=== PATIENT | male | born 1940 | race Caucasian/White ===

== ENCOUNTER 2017-12-27 21:23 | Emergency (ER) | payer MEDICARE, OTHER ==
[2017-12-27] MEDS ORDERED: LIDOCAINE 1% INJ-PF (10 MG/ML) 30 ML SDV INJ ONE (22:48)
[2017-12-27] MEDS ORDERED: DIPH/PERTUSS(ACELL)/TETANUS VAC/PF 0.5 ML SYR (>=10YO) IM ONE ×2 (22:49→22:59)
[2017-12-27] MEDS ORDERED: LIDOCAINE 1% INJ-PF (10 MG/ML) 30 ML SDV ONE (22:59)
[2017-12-28] MEDS ORDERED: CEPHALEXIN 500 MG CAPSULE PO ONE (00:07)
--- NOTE | 2017-12-28 00:13 | ER Document Report ---
ED Extremity Problem, Lower - General Chief Complaint: Toe Injury Stated Complaint: TOE LACERATION Time Seen by Provider: 12/27/17 22:38 Mode of Arrival: Wheelchair Information source: Patient Notes: 77-year-old male presented to ED for laceration to the right foot between the fourth and fifth toe when he stubbed his toe on the cedar chest. He states his last tetanus shot was last year. He had a large laceration between the fourth and fifth toe. Patient is alert and oriented respirations regular unlabored speaking in full sentences. TRAVEL OUTSIDE OF THE [place] IN LAST 30 DAYS: No - HPI Patient complains to provider of: Injury, Pain - Related Data Allergies/Adverse Reactions: No Known Allergies Allergy (Verified 04/19/15 09:41) Past Medical History - Social History Smoking Status: Never Smoker Chew tobacco use (# tins/day): No Frequency of alcohol use: None Drug Abuse: None Family History: Reviewed & Not Pertinent Patient has suicidal ideation: No Patient has homicidal ideation: No - Past Medical History Cardiac Medical History: Reports: Hx Atrial Fibrillation Denies: Hx Heart Attack, Hx Hypertension Pulmonary Medical History: Reports: Hx Sleep Apnea Denies: Hx Asthma Neurological Medical History: Denies: Hx Cerebrovascular Accident, Hx Seizures Renal/ Medical History: Denies: Hx Peritoneal Dialysis GI Medical History: Denies: Hx Hepatitis, Hx Hiatal Hernia, Hx Ulcer Psychiatric Medical History: Reports: Hx Depression Infectious Medical History: Denies: Hx Hepatitis Past Surgical History: Denies: Hx Open Heart Surgery, Hx Pacemaker - Immunizations Hx Diphtheria, Pertussis, Tetanus Vaccination: Yes Hx Pneumococcal Vaccination: 03/24/14 Physical Exam - Vital signs Vitals: Temp Pulse Resp BP Pulse Ox 99.1 F 74 20 133/78 H 95 12/27/17 21:41 12/27/17 21:41 12/27/17 21:41 12/27/17 21:41 12/27/17 21:41 Course - Re-evaluation Re-evalutation: 12/28/17 02:30 Patient was discharged home with a prescription for Keflex. She was instructed to follow-up with podiatry on Saturday due to his fact that he is a diabetic and on Coumadin. Patient verbalized understanding of instructions. If was given instructions on wound care and dressing changes. Patient was treated with Keflex while in the emergency room. 12/28/17 02:31 - Vital Signs Vital signs: Temp Pulse Resp BP Pulse Ox 98.6 F 76 18 116/86 H 95 12/28/17 00:32 12/28/17 00:32 12/28/17 00:32 12/28/17 00:32 12/28/17 00:32 Procedures - Laceration/Wound Repair Right Foot Time completed: 23:55 Wound length (cm): 4 Wound's Depth, Shape: Irregular Laceration pre-procedure: Sterile PPE donned, Sterile drapes applied, Shur- Clens applied Anesthetic type: 1% Lidocaine Volume Anesthetic (mLs): 8 Wound explored: Contaminated Irrigated w/ Saline (mLs): 300 Wound Repaired With: Sutures Suture Size/Type: 4:0, Ethilon Number of Sutures: 9 Layer Closure?: No Post-procedure wound care: Sterile dressing applied Post-procedure NV exam normal: Yes Complications: No Discharge - Discharge Clinical Impression: laceration right between toes Condition: Stable Disposition: HOME, SELF-CARE Additional Instructions: Foot Laceration A laceration on the foot will heal best if it remains undisturbed. Pressure on the stitch area from shoes or walking can prevent proper healing. Crutches are necessary if walking causes discomfort. Do not wear shoes that put pressure on the cut. If your feet tend to sweat, you must change the bandage frequently, allowing the area to dry before placing the new bandage. Keep the wound and dressing clean. Do not shower or bathe the area. If the dressing gets wet, remove it and blot the wound dry, then reapply a clean, dry dressing. Dressings should be changed every day, or even two or three times daily if your feet sweat. If any signs of infection occur (swelling, redness, increasing tenderness, red streaks, tender lumps in the groin above the laceration, or fever), see the doctor immediately. SOAP CLEANSING: Gently wash the wound daily using a mild soap (like Ivory, Phisoderm, Neutrogena). Use warm water, rubbing gently until all debris, ooze, and crusting have been washed from the wound. Allow to dry briefly (about 10 minutes) after cleaning. Repeat this cleansing at least three times a day for the first two days and then once or twice a day. ANTIBIOTIC OINTMENT PROTECTION: Your wounds are such that dressing them is not practical or optional. After cleansing, you should apply a thin coating of antibiotic ointment ( Bacitracin, not Neosporin) to the wounds at least three times daily. This lessens infection risk, and may decrease the amount of scarring. Use a q-tip or dull butter knife, not your finger, to apply this ointment. Any debris or ooze which builds up in the ointment should be gently rubbed off with a sterile gauze pad. Harder crusting may need to be gently scrubbed off with a clean wash cloth with soap and warm water, perhaps applying a warm, wet wash cloth to the wound for ten minutes first. Development of redness, severe itching, or blistering may mean allergy to the ointment. See the doctor. PROPHYLACTIC ANTIBIOTIC: The antibiotics which have been prescribed are designed to decrease the risk of infection. Only certain types of wounds benefit from this -- the typical cut, scrape, or burn DOES NOT require antibiotics. Of course, infection can still occur despite the use of prophylactic antibiotics. Your wound will heal with less chance of an infectious complication if you take the medication as directed. The most important dose is the FIRST dose, so don't delay filling the prescription! Cephalexin The antibiotic you've been prescribed is a member of the cephalosporin class. This type of antibiotic covers a wide variety of infections, including those of the skin, lungs, and urinary tract. It's useful for staph infections. This antibiotic is slightly similar to the penicillin family. In rare cases , a person who is allergic to penicillin will also be allergic to this medication. If you have had a severe allergic reaction to penicillin, and have not taken this antibiotic since that time, notify your doctor. Antibiotics which cover many germs ("broad spectrum" antibiotics) are more likely to cause diarrhea or "yeast" infections. Women prone to vaginal yeast problems may suffer an attack after taking this antibiotic. In infants, oral thrush (white spots "stuck" on the cheek) or yeast diaper rash may result. See your doctor if these problems occur. Call at once if you develop itching, hives , shortness of breath, or lightheadedness. FOLLOW-UP CARE: Please return in ____3_ days for an infection check and dressing change. Your sutures should be removed in ___10__ days. To facilitate a timely removal of your sutures, you may return to the Emergency Department at [facility]. You do not need to call for an appointment, but the best time to come in for suture removal is early in the morning. If you have been referred to another physician for follow-up care, call that physicians office for an appointment as you were instructed. If you experience a significant change in your laceration, or if you are concerned there may be an infection (swelling, redness, drainage, increasing tenderness, red streaks, tender lumps in the armpit or groin above the laceration, or fever) , return to the Emergency Department immediately re-evaluation. Prescriptions: Cephalexin Monohydrate [Keflex 500 mg Capsule] 500 mg PO Q6H 5 Days capsule Forms: Elevated Blood Pressure Referrals: COLTEN BARBA MD [Primary Care Provider] - Follow up as needed PARKER ZIMMERMAN DPM [ACTIVE STAFF] - 12/30/17
[2017-12-28 00:35] VITALS: BP 116/86
== END 2017-12-28 00:43 | disposition home or self-care (01) ==
LOC: ER 21:23
DX: S91.311A Laceration without foreign body, right foot, initial encounter (principal); W22.8XXA Striking against or struck by other objects, initial encounter
CPT/HCPCS: 99282; 12002; A9270; J3490

== ENCOUNTER 2018-05-17 12:04 | Emergency (ER) | payer MEDICARE, OTHER ==
--- NOTE | 2018-05-17 13:49 | ER Document Report ---
ED Medical Screen (RME) - General Chief Complaint: Leg Pain Stated Complaint: RIGHT LEG INJURY Time Seen by Provider: 05/17/18 13:44 Notes: Patient kicked a container Saturday and it caused an abrasion to the lower right lateral leg and the external layer of skin was peeled away. They have been putting peroxide on the lesion and applying triple antibiotic ointment, but it is having increasing pain, swelling, and its bleeding. Patient has chronic dermatitis of both lower extremities. He is also on Coumadin. Has not had a fever. Bes-[id number] diabetic. TRAVEL OUTSIDE OF THE [place] IN LAST 30 DAYS: No - Related Data Allergies/Adverse Reactions: No Known Allergies Allergy (Verified 05/17/18 13:39) Past Medical History - Social History Chew tobacco use (# tins/day): No Frequency of alcohol use: None Drug Abuse: None - Past Medical History Cardiac Medical History: Reports: Hx Atrial Fibrillation Denies: Hx Heart Attack, Hx Hypertension Pulmonary Medical History: Reports: Hx Sleep Apnea Denies: Hx Asthma Neurological Medical History: Denies: Hx Cerebrovascular Accident, Hx Seizures Renal/ Medical History: Denies: Hx Peritoneal Dialysis GI Medical History: Denies: Hx Hepatitis, Hx Hiatal Hernia, Hx Ulcer Psychiatric Medical History: Reports: Hx Depression Infectious Medical History: Denies: Hx Hepatitis Past Surgical History: Denies: Hx Open Heart Surgery, Hx Pacemaker - Immunizations Hx Diphtheria, Pertussis, Tetanus Vaccination: Yes Physical Exam - Vital signs Vitals: Temp Pulse Resp BP Pulse Ox 98.2 F 82 18 126/75 H 95 05/17/18 12:12 05/17/18 12:12 05/17/18 12:12 05/17/18 12:12 05/17/18 12:12 Course - Vital Signs Vital signs: Temp Pulse Resp BP Pulse Ox 98.2 F 82 18 126/75 H 95 05/17/18 12:12 05/17/18 12:12 05/17/18 12:12 05/17/18 12:12 05/17/18 12:12
[2018-05-17 14:17] LABS: ABSOLUTE EOSINOPHILS # (AUTO) 0.1 10^3/uL (0.0-0.6); ABSOLUTE LYMPHOCYTES (AUTO) 1.4 10^3/uL (0.5-4.7); ABSOLUTE MONOCYTES (AUTO) 0.9 10^3/uL (0.1-1.4); ABSOLUTE NEUT (AUTO) 5.4 10^3/uL (1.7-8.2); BASOPHILS % (AUTO) 0.5 % (0-2); EOSINOPHILS % (AUTO) 1.3 % (0-6); HEMATOCRIT 38.6 % (37.9-51.0); HEMOGLOBIN 13.1 g/dL (13.5-17.0); LYMPHOCYTES % (AUTO) 18.3 % (13-45); MEAN CORPUSCULAR VOLUME 88 fl (80-97); MONOCYTES % (AUTO) 11.9 % (3-13); PLATELET COUNT 124 10^3/uL (150-450); RED BLOOD COUNT 4.38 10^6/uL (4.35-5.55); RED CELL DISTRIBUTION WIDTH 17.5 % (11.5-14.0); TOTAL CELLS COUNTED % (AUTO) 100 %; WHITE BLOOD COUNT 7.9 10^3/uL (4.0-10.5)
[2018-05-17 14:22] LABS: INTERNATIONAL RATION (INR) 1.35; PROTHROMBIN TIME 17.4 SEC (11.4-15.4)
[2018-05-17 14:34] LABS: ALANINE AMINOTRANSFERASE 19 U/L (21-72); ALBUMIN 4.3 g/dL (3.5-5.0); ALKALINE PHOSPHATASE 134 U/L (38-126); ANION GAP 14 (5-19); ASPARTATE AMINO TRANSFERASE 25 U/L (17-59); BILIRUBIN,DIRECT 0.4 mg/dL (0.0-0.4); BILIRUBIN,TOTAL 1.3 mg/dL (0.2-1.3); BLOOD UREA NITROGEN 22 mg/dL (7-20); CALCIUM 9.6 mg/dL (8.4-10.2); CARBON DIOXIDE 27 mmol/L (22-30); CHLORIDE 102 mmol/L (98-107); GLUCOSE 125 mg/dL (75-110); POTASSIUM 4.5 mmol/L (3.6-5.0); TOTAL PROTEIN 7.6 g/dL (6.3-8.2)
--- NOTE | 2018-05-17 14:35 | ER Document Report ---
ED General - General Chief Complaint: Leg Pain Stated Complaint: RIGHT LEG INJURY Time Seen by Provider: 05/17/18 13:44 Notes: Patient is a 77-year-old male with diabetes and atrial fibrillation that presents to the emergency department for chief complaint of leg abrasion from injury. Patient reports that he accidentally had kicked a box that holds a chain saw on this past Saturday, and scraped the skin off, since then he has had increased swelling and redness to his right lower extremity, he has been applying hydrogen peroxide, and antibiotic ointment, but the wound is been weeping continuously so he decided to come have this evaluated. He does have a history of venous stasis in the bilateral lower extremities. He denies noting any fevers, chills, night sweats, nausea, vomiting or abdominal pain. He currently rates the pain in his leg as a 4 out of 10, worse with palpation around the area, describes as a constant aching sensation. Past Medical History: Diabetes mellitus, atrial fibrillation, venous stasis Past Surgical History: Appendectomy, cardiac ablation Social History: Former smoker, quit over 30 years ago, denies alcohol or drug use Family History: Reviewed and noncontributory for presenting illness Allergies: Reviewed, see documented allergy list. REVIEW OF SYSTEMS: Other than noted above, the 12 point review of systems was reviewed with the patient and were negative, all pertinent findings are included in the HPI. PHYSICAL EXAMINATION: Vital signs reviewed, nursing noted reviewed. GENERAL: Well-appearing, well-nourished and in no acute distress. HEAD: Atraumatic, normocephalic. EYES: Eyes appear normal, extraocular movements intact, sclera anicteric, conjunctiva are normal. ENT: nares patent, oropharynx clear without exudates. Moist mucous membranes. NECK: Normal range of motion, supple without lymphadenopathy LUNGS: Breath sounds clear to auscultation bilaterally and equal. No wheezes rales or rhonchi. HEART: Regular rate and rhythm without murmurs ABDOMEN: Soft, nontender, normoactive bowel sounds. No rebound, guarding, or rigidity. No masses appreciated. EXTREMITIES: Bilateral lower extremities, have hyperpigmentation, however the right lower extremity, has increased edema, and erythema, tenderness with palpation, on the anterior and posterior aspects of the calf, there is a 4 x 5 cm skin avulsion, without purulent drainage, currently clear drainage is present. There is surrounding erythema however. NEUROLOGICAL: No focal neurological deficits. Moves all extremities spontaneously Motor and sensory grossly intact on exam. PSYCH: Normal mood, normal affect. SKIN: Warm, Dry, normal turgor, no rashes or lesions noted on exposed skin TRAVEL OUTSIDE OF THE [place] IN LAST 30 DAYS: No - Related Data Allergies/Adverse Reactions: No Known Allergies Allergy (Verified 05/17/18 13:39) Past Medical History - Social History Smoking Status: Never Smoker Chew tobacco use (# tins/day): No Frequency of alcohol use: None Drug Abuse: None Family History: Reviewed & Not Pertinent Patient has suicidal ideation: No Patient has homicidal ideation: No - Past Medical History Cardiac Medical History: Reports: Hx Atrial Fibrillation Denies: Hx Heart Attack, Hx Hypertension Pulmonary Medical History: Reports: Hx Sleep Apnea Denies: Hx Asthma Neurological Medical History: Denies: Hx Cerebrovascular Accident, Hx Seizures Renal/ Medical History: Denies: Hx Peritoneal Dialysis GI Medical History: Denies: Hx Hepatitis, Hx Hiatal Hernia, Hx Ulcer Psychiatric Medical History: Reports: Hx Depression Infectious Medical History: Denies: Hx Hepatitis Past Surgical History: Denies: Hx Open Heart Surgery, Hx Pacemaker - Immunizations Hx Diphtheria, Pertussis, Tetanus Vaccination: Yes Hx Pneumococcal Vaccination: 03/24/14 Physical Exam - Vital signs Vitals: Temp Pulse Resp BP Pulse Ox 98.2 F 82 18 126/75 H 95 05/17/18 12:12 05/17/18 12:12 05/17/18 12:12 05/17/18 12:12 05/17/18 12:12 Course - Re-evaluation Re-evalutation: Patient seen and examined vital signs reviewed. Laboratory data and imaging were ordered as appropriate for the patient's presenting symptoms and complaint, with consideration of any critical or life threatening conditions that may be associated with their obtained history and exam as noted above. Patient was treated with IV Zosyn, and [place] for pain Results were reviewed when available and demonstrated negative duplex imaging of the lower extremity, he did not have any leukocytosis, and blood work is otherwise unchanged from prior The patient was re-evaluated and was stable Evaluation was most consistent with injury and cellulitis to the right lower extremity, duplex imaging negative for DVT, advised elevation, and compression of the leg, his wound was redressed, will discharge him home on doxycycline, his prior cultures were reviewed, no history of MRSA, or Pseudomonas, he is advised if he has any worsening symptoms, that he should return to the emergency department, should follow-up with primary care for wound check. Results were discussed with the patient at this point, after careful consideration I feel that that patient can be discharged from the emergency department, the patient was educated treatments and reasons to return to the emergency department based on their presumed diagnosis as noted above, they were advised to followup with a primary care physician in 2-3 days. Patient was agreeable to plan of care. *Note is created using voice recognition software and may contain spelling, syntax or grammatical errors. Laboratory 05/17/18 05/17/18 05/17/18 13:53 13:53 13:53 WBC 7.9 RBC 4.38 Hgb 13.1 L Hct 38.6 MCV 88 MCH 30.0 MCHC 34.0 RDW 17.5 H Plt Count 124 L Seg Neutrophils % 68.0 Lymphocytes % 18.3 Monocytes % 11.9 Eosinophils % 1.3 Basophils % 0.5 Absolute Neutrophils 5.4 Absolute Lymphocytes 1.4 Absolute Monocytes 0.9 Absolute Eosinophils 0.1 Absolute Basophils 0.0 PT 17.4 H INR 1.35 Sodium 143.0 Potassium 4.5 Chloride 102 Carbon Dioxide 27 Anion Gap 14 BUN 22 H Creatinine 0.95 Est GFR ( Amer) > 60 Est GFR (Non-Af Amer) > 60 Glucose 125 H Calcium 9.6 Total Bilirubin 1.3 Direct Bilirubin 0.4 Neonat Total Bilirubin Not Reportable Neonat Direct Bilirubin Not Reportable Neonat Indirect Bili Not Reportable AST 25 ALT 19 L Alkaline Phosphatase 134 H Total Protein 7.6 Albumin 4.3 Venous Doppler Study 05/17/18 14:48 IMPRESSION: NO EVIDENCE OF DVT OR SVT IN THE RIGHT LEG. - Vital Signs Vital signs: Temp Pulse Resp BP Pulse Ox 98.6 F 86 20 130/80 H 98 05/17/18 16:38 05/17/18 16:38 05/17/18 16:38 05/17/18 16:38 05/17/18 16:38 - Laboratory Result Diagrams: 05/17/18 13:53 05/17/18 13:53 Laboratory results interpreted by me: 05/17/18 05/17/18 05/17/18 13:53 13:53 13:53 Hgb 13.1 L RDW 17.5 H Plt Count 124 L PT 17.4 H BUN 22 H Glucose 125 H ALT 19 L Alkaline Phosphatase 134 H Discharge - Discharge Clinical Impression: Cellulitis Qualifiers: Site of cellulitis: extremity Site of cellulitis of extremity: lower extremity Laterality: right Qualified Code(s): L03.115 - Cellulitis of right lower limb Condition: Stable Disposition: HOME, SELF-CARE Instructions: Cellulitis ([facility]) Additional Instructions: Please keep your leg elevated as much as possible, apply dressings at least once daily, if your symptoms are not improving, do not hesitate to return to the emergency department, or if you develop fever, chills, nausea, vomiting or lightheadedness. Also you should follow-up with your primary care physician/ family physician in the next 2-3 days, to have a wound check. Prescriptions: Doxycycline Hyclate 100 mg PO BID #20 capsule Hydrocodone/Acetaminophen [[place] 5-325 mg Tablet] 1 tab PO Q6H PRN #12 tablet PRN Reason: LEG PAIN Referrals: COLTEN BARBA MD [Primary Care Provider] - Follow up in 3-5 days
[2018-05-17] MEDS ORDERED: HYDROCODONE/ACETAMINOPHEN 5-325 MG TABLET PO ONE (14:48)
[2018-05-17] MEDS ORDERED: PIPERACILLIN/TAZOBACTAM 3.375 GM VIAL IV ONE (14:48)
--- NOTE | 2018-05-17 16:21 | RADIOLOGY REPORT (SQ) ---
EXAM DESCRIPTION: VENOUS UNILATERAL LOWER COMPLETED DATE/TIME: 05/17/2018 4:07 pm REASON FOR STUDY: right le swelling, erythema COMPARISON: None. TECHNIQUE: Dynamic and static perry scale and color images acquired of the right leg venous system. S elected spectral images acquired with additional compression and augmentation maneuvers. The contrala teral common femoral vein and saphenofemoral junction were also imaged. Images stored on PACS. LIMITATIONS: None. FINDINGS: COMMON FEMORAL: Normal phasicity, compression and augmentation. No visualized echogenic ma terial on perry scale. No defects on color images. FEMORAL: Normal compression and augmentation. No visualized echogenic material on perry scale. No defe cts on color images. POPLITEAL: Normal compression, augmentation. No visualized echogenic material on perry scale. No defec ts on color images. CALF VESSELS: Normal compression, augmentation. No visualized echogenic material on perry scale. No de fects on color images. GSV and SSV: Normal compression, augmentation. No visualized echogenic material on perry scale. No def ects on color images. ANY DEEP VENOUS INSUFFICIENCY: Not evaluated. ANY EVIDENCE OF POPLITEAL CYST: No. OTHER: No other significant finding. CONTRALATERAL COMMON FEMORAL VEIN AND SAPHENOFEMORAL JUNCTION: Normal phasicity, compression and augmentation. No visualized echogenic material on perry scale. No de fects on color images. IMPRESSION: NO EVIDENCE OF DVT OR SVT IN THE RIGHT LEG. TECHNICAL DOCUMENTATION: JOB ID: [id number] [employer]- All Rights Reserved Reading location - IP/workstation name: [email or web address]
[2018-05-17 16:39] VITALS: BP 130/80
== END 2018-05-17 16:39 | disposition home or self-care (01) ==
LOC: ER 12:04
DX: S80.811A Abrasion, right lower leg, initial encounter (principal); L03.115 Cellulitis of right lower limb; W22.8XXA Striking against or struck by other objects, initial encounter; E11.9 Type 2 diabetes mellitus without complications; Z87.891 Personal history of nicotine dependence
CPT/HCPCS: 99284; 96365; 36415; 87040; 85025; 85610; 80053; 93971; J2543; A9270

== ENCOUNTER 2018-07-09 13:40 | Inpatient (IN) | payer MEDICARE, OTHER ==
[2018-07-09] MEDS ORDERED: ASPIRIN 81 MG TABLET, CHEWABLE PO ONE (14:26)
--- NOTE | 2018-07-09 14:28 | ER Document Report ---
ED Medical Screen (RME) - General Chief Complaint: Shortness Of Breath Stated Complaint: SHORTNESS OF BREATH Time Seen by Provider: 07/09/18 14:25 Notes: 77-year-old male. History of hypertension. Questionable CHF. Possible low heart rate at home. Has been having increased shortness of breath some mild chest discomfort with small amount of swelling to the lower extremities. At home heart rate monitor said his heart rate was in the 30s. Called his addictions counselor assistant. Child Support Officer advised patient to come to the ER. I have greeted and performed a rapid initial assessment of this patient. A comprehensive ED assessment and evaluation of the patient, analysis of test results and completion of the medical decision making process will be conducted by additional ED providers. TRAVEL OUTSIDE OF THE [place] IN LAST 30 DAYS: No - Related Data Allergies/Adverse Reactions: No Known Allergies Allergy (Verified 07/09/18 13:41) Past Medical History - Social History Frequency of alcohol use: None Drug Abuse: None - Past Medical History Cardiac Medical History: Reports: Hx Atrial Fibrillation, Hx Congestive Heart Failure, Hx Hypercholesterolemia, Hx Hypertension Denies: Hx Heart Attack Pulmonary Medical History: Reports: Hx COPD, Hx Pneumonia, Hx Sleep Apnea Denies: Hx Asthma Neurological Medical History: Denies: Hx Cerebrovascular Accident, Hx Seizures Endocrine Medical History: Reports: Hx Diabetes Mellitus Type 2 Renal/ Medical History: Denies: Hx Peritoneal Dialysis GI Medical History: Denies: Hx Hepatitis, Hx Hiatal Hernia, Hx Ulcer Psychiatric Medical History: Reports: Hx Depression Infectious Medical History: Denies: Hx Hepatitis Past Surgical History: Reports: Hx Appendectomy, Hx Tonsillectomy. Denies: Hx Open Heart Surgery, Hx Pacemaker - Immunizations Hx Diphtheria, Pertussis, Tetanus Vaccination: Yes Physical Exam - Vital signs Vitals: Temp Pulse Resp BP Pulse Ox 98.1 F 48 L 20 136/79 H 94 07/09/18 13:42 07/09/18 13:42 07/09/18 13:42 07/09/18 13:42 07/09/18 13:42 - Cardiovascular Rhythm: Irregularly irregular, Bradycardia Course - Vital Signs Vital signs: Temp Pulse Resp BP Pulse Ox 98.1 F 48 L 20 136/79 H 94 07/09/18 13:42 07/09/18 13:42 07/09/18 13:42 07/09/18 13:42 07/09/18 13:42
[2018-07-09] MEDS ORDERED: NORMAL SALINE 1000 ML 100 ML IV ONE (15:04)
--- NOTE | 2018-07-09 15:05 | ER Document Report ---
ED Respiratory Problem - General Mode of Arrival: Ambulatory Information source: Patient TRAVEL OUTSIDE OF THE [place] IN LAST 30 DAYS: No <JESUS CARRANZA - Last Filed: 07/09/18 16:20> <STEPHEN NEWSOME - Last Filed: 07/09/18 19:58> - General Chief Complaint: Shortness Of Breath Stated Complaint: SHORTNESS OF BREATH Time Seen by Provider: 07/09/18 14:25 Notes: 77-year-old male who presents to the emergency department today with complaints of shortness of breath with associated chest pain which began last night at around 0200. Patient states that he was trying to sleep when his symptoms began. Patient states his symptoms were somewhat relieved if he sat up in bed. Patient describes the location of his chest pain as "both sides" and points to the anterior lateral chest blanton bilaterally. Patient also mentions that he has had tingling across all five fingers on both hands. Patient states it does not hurt when he breathes. (JESUS CARRANZA) - Related Data Allergies/Adverse Reactions: No Known Allergies Allergy (Verified 07/09/18 13:41) Past Medical History - General Information source: Patient - Social History Smoking Status: Former Smoker Cigarette use (# per day): No Frequency of alcohol use: None Drug Abuse: None Lives with: Family Family History: Reviewed & Not Pertinent Patient has suicidal ideation: No Patient has homicidal ideation: No - Past Medical History Cardiac Medical History: Reports: Hx Atrial Fibrillation, Hx Congestive Heart Failure, Hx Hypercholesterolemia, Hx Hypertension Pulmonary Medical History: Reports: Hx COPD, Hx Pneumonia, Hx Sleep Apnea Endocrine Medical History: Reports: Hx Diabetes Mellitus Type 2 Psychiatric Medical History: Reports: Hx Depression Past Surgical History: Reports: Hx Appendectomy, Hx Tonsillectomy - Immunizations Hx Diphtheria, Pertussis, Tetanus Vaccination: Yes Hx Pneumococcal Vaccination: 03/24/14 <JESUS CARRANZA - Last Filed: 07/09/18 16:20> Review of Systems - Review of Systems Constitutional: No symptoms reported EENT: No symptoms reported Cardiovascular: See HPI, Chest pain Respiratory: See HPI, Short of breath. denies: Hurts to breathe Gastrointestinal: No symptoms reported Genitourinary: No symptoms reported Male Genitourinary: No symptoms reported Musculoskeletal: No symptoms reported Skin: No symptoms reported Hematologic/Lymphatic: No symptoms reported Neurological/Psychological: See HPI, Tingling - all fingers -: Yes All other systems reviewed and negative <JESUS CARRANZA - Last Filed: 07/09/18 16:20> Physical Exam <JESUS CARRANZA - Last Filed: 07/09/18 16:20> - Vital signs Vitals: Temp Pulse Resp BP Pulse Ox 98.1 F 48 L 20 136/79 H 94 07/09/18 13:42 07/09/18 13:42 07/09/18 13:42 07/09/18 13:42 07/09/18 13:42 - Notes Notes: Physical Exam: General: Alert, appears somewhat uncomfortable. HEENT: Normocephalic. Atraumatic. PERRL. Extraocular movements intact. Oropharynx clear. Dry mucous membranes, thick saliva. Neck: Supple. Non-tender. Respiratory: No respiratory distress. Clear and equal breath sounds bilaterally. Tenderness with palpation across the anterior lateral chest blanton bilaterally. Cardiovascular: Regular rate and rhythm. Abdominal: Normal Inspection. Non-tender. No distension. Normal Bowel Sounds. Back: Non-tender. No deformity or step off. Extremities: Moves all four extremities. Upper extremities: Normal inspection. Normal ROM. Lower extremities: 1-2+ chronic lower extremity edema. Normal ROM. Neurological: Normal cognition. AAOx4. Normal speech. Psychological: Normal affect. Normal Mood. Skin: Warm. Dry. Normal color. (JESUS CARRANZA) Course - Laboratory Result Diagrams: 07/09/18 14:53 07/09/18 14:53 <JESUS CARRANZA - Last Filed: 07/09/18 16:20> - Laboratory Result Diagrams: 07/09/18 14:53 07/09/18 14:53 - Diagnostic Test Radiology reviewed: Image reviewed, Reports reviewed - Chest x-ray shows enlarged heart without failure. <STEPHEN NEWSOME - Last Filed: 07/09/18 19:58> - Re-evaluation Re-evalutation: 07/09/18 17:54 The hospital does not have any Kayexalate. I was able to locate one pharmacy in town that does have some Kayexalate powder. They are going to mix up 2 doses of Kayexalate 15 g and the patient's family is going to go to that pharmacy and pear picker the medicine, then return to the emergency room with the 2 doses. When they return we will give him 1 dose and keep the other with him as a spare just in case. While discussing this with the , it turns out the patient takes potassium tablets and eats a banana every day. (STEPHEN NEWSOME) - Vital Signs Vital signs: Temp Pulse Resp BP Pulse Ox 98.1 F 48 L 24 H 155/82 H 92 07/09/18 13:42 07/09/18 13:42 07/09/18 18:01 07/09/18 17:02 07/09/18 18:01 - Laboratory Laboratory results interpreted by me: 07/09/18 07/09/18 07/09/18 14:53 14:53 14:53 RDW 18.2 H Plt Count 138 L PT 20.8 H APTT 42.6 H Potassium 5.9 H BUN 25 H Creatinine 1.43 H Est GFR ( Amer) 58 L Est GFR (Non-Af Amer) 48 L Glucose 281 H Total Bilirubin 1.7 H Direct Bilirubin 0.9 H Alkaline Phosphatase 169 H Creatine Kinase 35 L NT-Pro-B Natriuret Pep Urine Protein Urine Glucose (UA) 07/09/18 07/09/18 14:53 19:00 RDW Plt Count PT APTT Potassium BUN Creatinine Est GFR ( Amer) Est GFR (Non-Af Amer) Glucose Total Bilirubin Direct Bilirubin Alkaline Phosphatase Creatine Kinase NT-Pro-B Natriuret Pep 532 H Urine Protein 30 H Urine Glucose (UA) >=500 H Critical Care Note - Critical Care Note Total time excluding time spent on procedures (mins): 35 <STEPHEN NEWSOME - Last Filed: 07/09/18 19:58> Discharge <JESUS CARRANZA - Last Filed: 07/09/18 16:20> - Discharge Admitting Provider: Hospitalist Unit Admitted: IMCU <STEPHEN NEWSOME - Last Filed: 07/09/18 19:58> - Discharge Clinical Impression: Bradycardia, Chronic atrial fibrillation, Hyperkalemia, Dehydration, Chest wall pain, Inadequate anticoagulation Type 2 diabetes mellitus Qualifiers: Diabetes mellitus custodial insulin use: without terminal superintendent use Diabetes mellitus complication status: with unspecified complications Qualified Code(s): E11.8 - Type 2 diabetes mellitus with unspecified complications Condition: Stable Disposition: ADMITTED INPATIENT Scribe Attestation: 07/09/18 19:58 I personally performed the services described in the documentation, reviewed and edited the documentation which was dictated to the scribe in my presence, and it accurately records my words and actions. (STEPHEN NEWSOME) Scribe Documentation - Scribe Written by Dajae:: Violet Gordon, 07/09/2018 1620 acting as scribe for :: Aniya <JESUS CARRANZA - Last Filed: 07/09/18 16:20>
[2018-07-09 15:08] LABS: ABSOLUTE LYMPHOCYTES (AUTO) 1.5 10^3/uL (0.5-4.7); ABSOLUTE MONOCYTES (AUTO) 1.2 10^3/uL (0.1-1.4); ABSOLUTE NEUT (AUTO) 7.8 10^3/uL (1.7-8.2); BASOPHILS % (AUTO) 0.2 % (0-2); HEMATOCRIT 43.3 % (37.9-51.0); HEMOGLOBIN 14.2 g/dL (13.5-17.0); LYMPHOCYTES % (AUTO) 14.1 % (13-45); MEAN CORPUSCULAR HEMOGLOBIN 28.1 pg (27.0-33.4); MEAN CORPUSCULAR HGB CONC 32.7 g/dL (32.0-36.0); MEAN CORPUSCULAR VOLUME 86 fl (80-97); MONOCYTES % (AUTO) 11.5 % (3-13); PLATELET COUNT 138 10^3/uL (150-450); RED BLOOD COUNT 5.04 10^6/uL (4.35-5.55); RED CELL DISTRIBUTION WIDTH 18.2 % (11.5-14.0); SEGMENTED NEUTROPHILS % (AUTO) 74.2 % (42-78); TOTAL CELLS COUNTED % (AUTO) 100 %; WHITE BLOOD COUNT 10.5 10^3/uL (4.0-10.5)
[2018-07-09 15:12] LABS: PROTHROMBIN TIME 20.8 SEC (11.4-15.4)
[2018-07-09 15:13] LABS: PARTIAL THROMBOPLASTIN TIME 42.6 SEC (23.5-35.8)
--- NOTE | 2018-07-09 15:20 | RADIOLOGY REPORT (SQ) ---
EXAM DESCRIPTION: CHEST SINGLE VIEW COMPLETED DATE/TIME: 07/09/2018 3:04 pm REASON FOR STUDY: sob COMPARISON: 10/11/2014. NUMBER OF VIEWS: One view. TECHNIQUE: Single frontal radiographic view of the chest acquired. LIMITATIONS: None. FINDINGS: LUNGS AND PLEURA: No opacities, masses or pneumothorax. No pleural effusion. MEDIASTINUM AND HILAR STRUCTURES: No masses. Contour normal. HEART AND VASCULAR STRUCTURES: Heart enlarged without failure. Normal vasculature. BONES: No acute findings. HARDWARE: None in the chest. OTHER: No other significant finding. IMPRESSION: HEART ENLARGED WITHOUT FAILURE. NO OTHER SIGNIFICANT RADIOGRAPHIC FINDING IN THE CHEST. TECHNICAL DOCUMENTATION: JOB ID: [id number] All Rights Reserved Reading location - IP/workstation name: [email or web address]
[2018-07-09 15:26] LABS: ALANINE AMINOTRANSFERASE 27 U/L (21-72); ALBUMIN 4.6 g/dL (3.5-5.0); ALKALINE PHOSPHATASE 169 U/L (38-126); ANION GAP 15 (5-19); ASPARTATE AMINO TRANSFERASE 41 U/L (17-59); BILIRUBIN,DIRECT 0.9 mg/dL (0.0-0.4); BILIRUBIN,TOTAL 1.7 mg/dL (0.2-1.3); BLOOD UREA NITROGEN 25 mg/dL (7-20); CALCIUM 9.9 mg/dL (8.4-10.2); CARBON DIOXIDE 24 mmol/L (22-30); CHLORIDE 100 mmol/L (98-107); CREATINE KINASE 35 U/L (55-170); GLUCOSE 281 mg/dL (75-110); POTASSIUM 5.9 mmol/L (3.6-5.0); SODIUM 139.4 mmol/L (137-145); TOTAL PROTEIN 7.5 g/dL (6.3-8.2)
[2018-07-09] MEDS ORDERED: CALCIUM GLUCONATE 1000 MG/10 ML INJ IV ONE (15:33)
[2018-07-09] MEDS ORDERED: SODIUM BICARBONATE 8.4% INJ 50 MEQ/50 ML DISP.SYRIN IV ONE (15:33)
[2018-07-09] MEDS ORDERED: DEXTROSE 50%-WATER 25 GM/50 ML DISP.SYRIN IV ONE (15:34)
[2018-07-09] MEDS ORDERED: INSULIN REG, HUMAN 100 UNIT/ML 3 ML VIAL (PYX) IV ONE (15:34)
[2018-07-09 15:38] LABS: TROPONIN I 0.024 ng/mL
[2018-07-09] MEDS ORDERED: ALBUTEROL SULFATE 0.083% NEB 2.5 MG/3 ML AMPUL NEB ONE (15:52)
[2018-07-09] MEDS ORDERED: SODIUM POLYSTYRENE SULFONATE 15 GM/60 ML PO ONE (16:20)
[2018-07-09] MEDS ORDERED: ONDANSETRON HCL INJ/PF 4 MG/2 ML SDV IV ONE (16:20)
--- NOTE | 2018-07-09 17:57 | EKG REPORT ---
SEVERITY:- ABNORMAL ECG - PROBABLE SINUS BRADYCARDIA RHYTHM, cannot rule out junctional rhythm NONSPECIFIC INTRAVENTRICULAR CONDUCTION DELAY LOW VOLTAGE IN FRONTAL LEADS : Confirmed by: Lizet Baxter 09-Jul-2018 17:57:20
[2018-07-09 19:32] LABS: APPEARANCE,URINE SLIGHTLY-CLOUDY; BILIRUBIN,URINE NEGATIVE (NEGATIVE); COLOR,URINE YELLOW; GLUCOSE, URINE >=500 mg/dL (NEGATIVE); KETONES,URINE NEGATIVE (NEGATIVE); LEUKOCYTE ESTERASE,URINE NEGATIVE (NEGATIVE); NITRITE,URINE NEGATIVE (NEGATIVE); PROTEIN,URINE 30 mg/dL (NEGATIVE); URINE SPECIFIC GRAVITY 1.028; UROBILINOGEN,URINE NEGATIVE mg/dL (<2.0)
[2018-07-09] MEDS ORDERED: LACTULOSE SYRUP 20 GM/30 ML UDCUP PO ONE (19:58)
[2018-07-09] MEDS ORDERED: IPRATROPIUM/ALBUTEROL 0.5-2.5 MG/3 ML AMPUL NEB ONE (19:59)
[2018-07-09] MEDS ORDERED: MAG HYDROX/AL HYDROX/SIMETH SUSP 30 ML UDCUP PO PRN (19:59)
[2018-07-09] MEDS ORDERED: DEXTROSE 40% GEL 15 GM TUBE PO PRN ×2 (19:59)
[2018-07-09] MEDS ORDERED: DEXTROSE 50%-WATER 25 GM/50 ML DISP.SYRIN IV PRN ×2 (19:59)
[2018-07-09] MEDS ORDERED: GLUCAGON,HUMAN RECOMB 1 MG INJ IM PRN (19:59)
[2018-07-09] MEDS ORDERED: IPRATROPIUM/ALBUTEROL 0.5-2.5 MG/3 ML AMPUL NEB PRN (19:59)
[2018-07-09] MEDS ORDERED: ACETAMINOPHEN 325 MG TABLET PO PRN (19:59)
[2018-07-09 21:53] LABS: CREATINE KINASE MB 1.32 ng/mL (<4.55); TROPONIN I 0.05 ng/mL
[2018-07-09] MEDS: HEPARIN SOD (PORCINE) 5,000 UNIT/ML 1 ML SYRINGE SUBCUT SCH (22:42)
[2018-07-09] MEDS: INSULIN LISPRO 100 UNIT/ML 3 ML VIAL SUBCUT PRN (22:49)
[2018-07-10 03:33] LABS: ABSOLUTE LYMPHOCYTES (AUTO) 2.3 10^3/uL (0.5-4.7); ABSOLUTE MONOCYTES (AUTO) 1.6 10^3/uL (0.1-1.4); ABSOLUTE NEUT (AUTO) 7.5 10^3/uL (1.7-8.2); BASOPHILS % (AUTO) 0.4 % (0-2); EOSINOPHILS % (AUTO) 0.3 % (0-6); HEMATOCRIT 38.3 % (37.9-51.0); HEMOGLOBIN 12.8 g/dL (13.5-17.0); LYMPHOCYTES % (AUTO) 20.1 % (13-45); MEAN CORPUSCULAR HEMOGLOBIN 28.4 pg (27.0-33.4); MEAN CORPUSCULAR HGB CONC 33.4 g/dL (32.0-36.0); MEAN CORPUSCULAR VOLUME 85 fl (80-97); MONOCYTES % (AUTO) 13.9 % (3-13); PLATELET COUNT 112 10^3/uL (150-450); RED CELL DISTRIBUTION WIDTH 18.4 % (11.5-14.0); SEGMENTED NEUTROPHILS % (AUTO) 65.3 % (42-78); TOTAL CELLS COUNTED % (AUTO) 100 %; WHITE BLOOD COUNT 11.5 10^3/uL (4.0-10.5)
[2018-07-10 03:40] LABS: INTERNATIONAL RATION (INR) 1.72
[2018-07-10 03:55] LABS: ANION GAP 13 (5-19); BLOOD UREA NITROGEN 32 mg/dL (7-20); CALCIUM 9.5 mg/dL (8.4-10.2); CARBON DIOXIDE 22 mmol/L (22-30); CHLORIDE 103 mmol/L (98-107); GLUCOSE 201 mg/dL (75-110); POTASSIUM 5.4 mmol/L (3.6-5.0); SODIUM 138.1 mmol/L (137-145)
[2018-07-10 04:07] LABS: CREATINE KINASE MB 1.1 ng/mL (<4.55); TROPONIN I 0.057 ng/mL
--- NOTE | 2018-07-10 04:43 | PDOC H&P ---
History of Present Illness Admission Date/PCP: 07/09/18 20:06 Patient complains of: Shortness of breath and bradycardia History of Present Illness: YELENA HOLM is a 77 year old male patient of Dr. Payne primary care and Dr. Asher cardiology. With a past medical history of morbid obesity, obstructive sleep apnea, atrial fibrillation, chronic venous stasis and diabetes. He presents after 3 days of shortness of breath prompting evaluation with cardiology where he is found to bradycardic. He is referred to the emergency department and found with atrial fibrillation in the 40s and potassium of 5.9 without T wave changes. He denies recent change in medications but otherwise complains of abdominal distention and several weeks of constipation. He cannot recall his last normal bowel movement but is having episodes of explosive watery stool. He denies chest pain, palpitations, nausea vomiting or diaphoresis. He is referred to the hospitalist for admission pain-free. Past Medical History Cardiac Medical History: Reports: Atrial Fibrillation, Congestive Heart Failure, Hyperlipidema, Hypertension Denies: Myocardial Infarction Pulmonary Medical History: Reports: Chronic Obstructive Pulmonary Disease (COPD), Pneumonia, Sleep Apnea Denies: Asthma Neurological Medical History: Denies: Seizures Endocrine Medical History: Reports: Diabetes Mellitus Type 2 GI Medical History: Denies: Hepatitis, Hiatal Hernia Psychiatric Medical History: Reports: Depression Hematology: Denies: Anemia, Sickle Cell Disease Past Surgical History Past Surgical History: Reports: Appendectomy, Tonsillectomy Denies: Pacemaker Social History Information Source: Patient, [facility] Records Lives with: Family Smoking Status: Former Smoker Frequency of Alcohol Use: None Hx Recreational Drug Use: No Drugs: None Hx Prescription Drug Abuse: No - Advance Directive Resuscitation Status: Full Code Family History Family History: Hypertension Parental Family History Reviewed: Yes Children Family History Reviewed: Yes Sibling(s) Family History Reviewed.: Yes Medication/Allergy Home Medications: Cetirizine HCl [Zyrtec 10 mg Tablet] 10 mg PO DAILY 07/09/18 Cyanocobalamin (Vitamin B-12) [Vitamin B-12 1000 mcg Tablet] 1,000 mcg PO DAILY 07/09/18 Diltiazem HCl [Diltiazem 24Hr ER] 120 mg PO DAILY 07/09/18 Dorzolamide HCl/Timolol Maleat [Cosopt Oph Soln 10 ml] 1 drop OU DAILY 07/09/18 Empagliflozin [Jardiance] 10 mg PO DAILY 07/09/18 Fluoxetine HCl [Prozac] 40 mg PO DAILY 07/09/18 Fluticasone Propionate [Flonase Nasal Morgan[place] 50 Mcg/[place]za 16 gm] 1 spray NASL DAILY 07/09/18 Furosemide [Lasix 40 mg Tablet] 40 mg PO QPM 07/09/18 Furosemide [Lasix 40 mg Tablet] 80 mg PO QAM 07/09/18 Gabapentin [Neurontin 300 mg Capsule] 300 mg PO Q8 07/09/18 Latanoprost [Xalatan 0.005% Oph Soln 2.5 ml] 1 drop OU QHS 07/09/18 Metoprolol Tartrate [Lopressor 25 mg Tablet] 25 mg PO Q12 07/09/18 Oxcarbazepine [Trileptal] 300 mg PO Q12 07/09/18 Pantoprazole Sodium [Protonix] 40 mg PO DAILY 07/09/18 Potassium Chloride [K-Tab ER] 20 meq PO DAILY 07/09/18 Sildenafil Citrate [Viagra] 100 mg PO DAILYP PRN 07/09/18 Simvastatin [Zocor 20 mg Tablet] 20 mg PO QHS 07/09/18 Sitagliptin Phos/Metformin HCl [Janumet 50-1,000 mg Tablet] 1 tab PO BID 07/09/18 Spironolactone [Aldactone 25 mg Tablet] 12.5 mg PO DAILY 07/09/18 Trazodone HCl [Desyrel 50 mg Tablet] 50 mg PO QHS 07/09/18 Warfarin Sodium [Coumadin 5 mg Tablet] 5 mg PO QHS 07/09/18 Allergies/Adverse Reactions: No Known Allergies Allergy (Verified 07/09/18 13:41) Review of Systems Constitutional: PRESENT: as per HPI, fatigue, weakness, weight gain. ABSENT: fever(s), headache(s) Eyes: ABSENT: visual disturbances Ears: ABSENT: hearing changes Cardiovascular: PRESENT: dyspnea on exertion, edema. ABSENT: chest pain, orthropnea, palpitations Respiratory: ABSENT: cough, hemoptysis Gastrointestinal: PRESENT: as per HPI, abdominal pain, bloating, constipation. ABSENT: diarrhea, melena, nausea, vomiting Genitourinary: ABSENT: dysuria, hematuria Musculoskeletal: ABSENT: joint swelling Integumentary: ABSENT: rash, wounds Neurological: ABSENT: abnormal gait, abnormal speech, confusion, dizziness, focal weakness, syncope Psychiatric: ABSENT: anxiety, depression, homidical ideation, suicidal ideation Endocrine: ABSENT: cold intolerance, heat intolerance, polydipsia, polyuria Hematologic/Lymphatic: ABSENT: easy bleeding, easy bruising Physical Exam Vital Signs: Temp Pulse Resp BP Pulse Ox 97.7 F 45 L 21 H 131/72 H 100 07/10/18 00:13 07/10/18 02:00 07/10/18 03:18 07/10/18 00:13 07/10/18 00:13 Intake & Output 07/08/18 07/09/18 07/10/18 11:59 11:59 11:59 Intake Total 0 Balance 0 Weight 132.7 kg General appearance: PRESENT: cooperative, mild distress, obese. ABSENT: no acute distress Head exam: PRESENT: atraumatic, normocephalic Eye exam: PRESENT: conjunctiva pink, EOMI, PERRLA. ABSENT: scleral icterus Ear exam: PRESENT: normal external ear exam Mouth exam: PRESENT: moist, tongue midline Neck exam: ABSENT: carotid bruit, JVD, lymphadenopathy, thyromegaly Respiratory exam: PRESENT: clear to auscultation fel[place]. ABSENT: crackles, rales, rhonchi, wheezes Cardiovascular exam: PRESENT: irregular rhythm, systolic murmur. ABSENT: diastolic murmur, rubs, tachycardia Pulses: PRESENT: normal dorsalis pedis pul Vascular exam: PRESENT: normal capillary refill GI/Abdominal exam: PRESENT: distended, hypoactive bowel sounds, normal bowel sounds, soft. ABSENT: firm, guarding, mass, organolmegaly, rebound, tenderness Rectal exam: PRESENT: deferred Extremities exam: PRESENT: full ROM, pedal edema, tenderness, +1 edema. ABSENT: calf tenderness, clubbing Neurological exam: PRESENT: alert, awake, oriented to person, oriented to place, oriented to time, oriented to situation, CN II-XII grossly intact. ABSENT: motor sensory deficit Psychiatric exam: PRESENT: appropriate affect, normal mood. ABSENT: homicidal ideation, suicidal ideation Skin exam: PRESENT: dry, intact, warm, other - Bilateral lower extremity chronic changes of. ABSENT: cyanosis, rash Results Laboratory Results: 07/10/18 03:26 07/10/18 03:26 07/09/18 07/09/1807/09/19 14:53 14:53 19:00 WBC 10.5 RBC 5.04 Hgb 14.2 Hct 43.3 MCV 86 MCH 28.1 MCHC 32.7 RDW 18.2 H Plt Count 138 L Seg Neutrophils % 74.2 Lymphocytes % 14.1 Monocytes % 11.5 Eosinophils % 0.0 Basophils % 0.2 Absolute Neutrophils 7.8 Absolute Lymphocytes 1.5 Absolute Monocytes 1.2 Absolute Eosinophils 0.0 Absolute Basophils 0.0 Sodium 139.4 Potassium 5.9 H Chloride 100 Carbon Dioxide 24 Anion Gap 15 BUN 25 H Creatinine 1.43 H Est GFR ( Amer) 58 L Est GFR (Non-Af Amer) 48 L Glucose 281 H Calcium 9.9 Magnesium Total Bilirubin 1.7 H AST 41 ALT 27 Alkaline Phosphatase 169 H Total Protein 7.5 Albumin 4.6 TSH Urine Color YELLOW Urine Appearance SLIGHTLY-CLOUDY Urine pH 5.0 Ur Specific [place] 1.028 Urine Protein 30 H Urine Glucose (UA) >=500 H Urine Ketones NEGATIVE Urine Blood NEGATIVE Urine Nitrite NEGATIVE Ur Leukocyte Esterase NEGATIVE Urine WBC (Auto) 2 Urine RBC (Auto) 1 07/10/18 07/10/18 07/10/18 03:26 03:26 03:26 WBC 11.5 H RBC 4.50 Hgb 12.8 L Hct 38.3 MCV 85 MCH 28.4 MCHC 33.4 RDW 18.4 H Plt Count 112 L Seg Neutrophils % 65.3 Lymphocytes % 20.1 Monocytes % 13.9 H Eosinophils % 0.3 Basophils % 0.4 Absolute Neutrophils 7.5 Absolute Lymphocytes 2.3 Absolute Monocytes 1.6 H Absolute Eosinophils 0.0 Absolute Basophils 0.0 Sodium 138.1 Potassium 5.4 H Chloride 103 Carbon Dioxide 22 Anion Gap 13 BUN 32 H Creatinine 1.52 H Est GFR ( Amer) 54 L Est GFR (Non-Af Amer) 45 L Glucose 201 H Calcium 9.5 Magnesium 2.1 Total Bilirubin AST ALT Alkaline Phosphatase Total Protein Albumin TSH 2.63 Urine Color Urine Appearance Urine pH Ur Specific [place] Urine Protein Urine Glucose (UA) Urine Ketones Urine Blood Urine Nitrite Ur Leukocyte Esterase Urine WBC (Auto) Urine RBC (Auto) 07/09/18 07/09/18 07/09/18 14:53 14:53 14:53 Creatine Kinase 35 L CK-MB (CK-2) 1.00 Troponin I 0.024 NT-Pro-B Natriuret Pep 532 H 07/09/18 07/09/18 07/10/18 21:07 21:07 03:26 Creatine Kinase 45 L 47 L CK-MB (CK-2) 1.32 Troponin I 0.050 NT-Pro-B Natriuret Pep 07/10/18 03:26 Creatine Kinase CK-MB (CK-2) 1.10 Troponin I 0.057 NT-Pro-B Natriuret Pep Impressions: Chest X-Ray 07/09/18 14:26 IMPRESSION: HEART ENLARGED WITHOUT FAILURE. NO OTHER SIGNIFICANT RADIOGRAPHIC FINDING IN THE CHEST. Assessment & Plan - Diagnosis (1) Constipation Is this a current diagnosis for this admission?: Yes Plan: Trial collects late and lactulose, bowel regiment and education suggesting Metamucil daily. (2) Bradycardia Is this a current diagnosis for this admission?: Yes Plan: Possibly secondary to additional dosing of medication. Patient recently reduced dose of Lopressor secondary to glaucoma. Will hold metoprolol and diltiazem pending rebound and heart rate. Follow-up cardiac enzymes (3) Chronic atrial fibrillation Is this a current diagnosis for this admission?: Yes Plan: Resume diltiazem as heart rate rebounds to 80. Continue Coumadin (4) Dehydration Is this a current diagnosis for this admission?: Yes Plan: No evidence for volume overload. Gentle IV fluid challenge (5) Hyperkalemia Is this a current diagnosis for this admission?: Yes Plan: Secondary to constipation uncomplicated by T wave changes. Follow-up chemistry following bowel movement (6) Type 2 diabetes mellitus Qualifiers: Diabetes mellitus retirement insulin use: without supervisor intermediates use Diabetes mellitus complication status: with unspecified complications Qualified Code(s): E11.8 - Type 2 diabetes mellitus with unspecified complications Is this a current diagnosis for this admission?: Yes Plan: Humalog sliding scale coverage and long-acting insulin. - Time Time Spent: 50 to 70 Minutes - Inpatient Certification Medical Necessity: Need Close Monitoring Due to Risk of Patient Decompensation
[2018-07-10] MEDS: HEPARIN SOD (PORCINE) 5,000 UNIT/ML 1 ML SYRINGE SUBCUT SCH (05:45)
[2018-07-10 10:20] LABS: CREATINE KINASE MB 1.18 ng/mL (<4.55); TROPONIN I 0.05 ng/mL
[2018-07-10] MEDS: DOCUSATE SODIUM 100 MG CAPSULE PO SCH ×2 (10:29→22:23)
[2018-07-10] MEDS: INSULIN LISPRO 100 UNIT/ML 3 ML VIAL SUBCUT PRN (12:32)
[2018-07-10] MEDS ORDERED: (PENDING PHARMACY ID) (Sildenafil Citrate [Viagra] 100 MG) PO PRN (12:59)
--- NOTE | 2018-07-10 13:17 | PDOC PROGRESS REPORT ---
Subjective Progress Note for:: 07/10/18 Subjective:: 77-year-old male referred to the ER for low heart rate. Patient has history of atrial fibrillation with heart rates in the 40s in the ER potassium is 5.9 without EKG changes. He had a good bowel movement this morning. Potassium came down to 5.4. He is taking potassium supplements at home those are discontinued. Patient is asymptomatic. Patient is on metoprolol and diltiazem at home those medications are on hold. Cardiology consult was requested. No acute events in the last 12 hours. Reason For Visit: BRADYCARDIA,HYPERKALEMIA, MORBID OBESITY Physical Exam Vital Signs: Temp Pulse Resp BP Pulse Ox 97.4 F 142 H 20 112/96 H 100 07/10/18 11:35 07/10/18 11:35 07/10/18 11:35 07/10/18 11:35 07/10/18 11:35 Intake & Output 07/09/18 07/10/18 07/11/18 06:59 06:59 06:59 Intake Total 0 Balance 0 Weight 135.4 kg General appearance: PRESENT: mild distress, other - Morbidly obese male. Head exam: PRESENT: atraumatic Eye exam: PRESENT: PERRLA Ear exam: PRESENT: normal external ear exam Mouth exam: PRESENT: moist Neck exam: ABSENT: carotid bruit, JVD, lymphadenopathy, thyromegaly Respiratory exam: PRESENT: decreased breath sounds Cardiovascular exam: PRESENT: bradycardia, irregular rhythm GI/Abdominal exam: PRESENT: other - Obese abdomen soft nontender no organomegaly. Extremities exam: PRESENT: full ROM. ABSENT: calf tenderness, clubbing, pedal edema Neurological exam: PRESENT: alert, awake, oriented to person, oriented to place, oriented to time, oriented to situation, CN II-XII grossly intact. ABSENT: motor sensory deficit Psychiatric exam: PRESENT: appropriate affect, normal mood. ABSENT: homicidal ideation, suicidal ideation Results Laboratory Results: 07/10/18 03:26 07/10/18 03:26 07/09/18 07/09/18 07/09/18 14:53 14:53 19:00 WBC 10.5 RBC 5.04 Hgb 14.2 Hct 43.3 MCV 86 MCH 28.1 MCHC 32.7 RDW 18.2 H Plt Count 138 L Seg Neutrophils % 74.2 Lymphocytes % 14.1 Monocytes % 11.5 Eosinophils % 0.0 Basophils % 0.2 Absolute Neutrophils 7.8 Absolute Lymphocytes 1.5 Absolute Monocytes 1.2 Absolute Eosinophils 0.0 Absolute Basophils 0.0 Sodium 139.4 Potassium 5.9 H Chloride 100 Carbon Dioxide 24 Anion Gap 15 BUN 25 H Creatinine 1.43 H Est GFR ( Amer) 58 L Est GFR (Non-Af Amer) 48 L Glucose 281 H Calcium 9.9 Magnesium Total Bilirubin 1.7 H AST 41 ALT 27 Alkaline Phosphatase 169 H Total Protein 7.5 Albumin 4.6 TSH Urine Color YELLOW Urine Appearance SLIGHTLY-CLOUDY Urine pH 5.0 Ur Specific Ald[place] 1.028 Urine Protein 30 H Urine Glucose (UA) >=500 H Urine Ketones NEGATIVE Urine Blood NEGATIVE Urine Nitrite NEGATIVE Ur Leukocyte Esterase NEGATIVE Urine WBC (Auto) 2 Urine RBC (Auto) 1 07/10/18 07/10/18 07/10/18 03:26 03:26 03:26 WBC 11.5 H RBC 4.50 Hgb 12.8 L Hct 38.3 MCV 85 MCH 28.4 MCHC 33.4 RDW 18.4 H Plt Count 112 L Seg Neutrophils % 65.3 Lymphocytes % 20.1 Monocytes % 13.9 H Eosinophils % 0.3 Basophils % 0.4 Absolute Neutrophils 7.5 Absolute Lymphocytes 2.3 Absolute Monocytes 1.6 H Absolute Eosinophils 0.0 Absolute Basophils 0.0 Sodium 138.1 Potassium 5.4 H Chloride 103 Carbon Dioxide 22 Anion Gap 13 BUN 32 H Creatinine 1.52 H Est GFR ( Amer) 54 L Est GFR (Non-Af Amer) 45 L Glucose 201 H Calcium 9.5 Magnesium 2.1 Total Bilirubin AST ALT Alkaline Phosphatase Total Protein Albumin TSH 2.63 Urine Color Urine Appearance Urine pH Ur Specific Ald[place] Urine Protein Urine Glucose (UA) Urine Ketones Urine Blood Urine Nitrite Ur Leukocyte Esterase Urine WBC (Auto) Urine RBC (Auto) 07/09/18 07/09/18 07/09/18 14:53 14:53 14:53 Creatine Kinase 35 L CK-MB (CK-2) 1.00 Troponin I 0.024 NT-Pro-B Natriuret Pep 532 H 07/09/18 07/09/18 07/10/18 21:07 21:07 03:26 Creatine Kinase 45 L 47 L CK-MB (CK-2) 1.32 Troponin I 0.050 NT-Pro-B Natriuret Pep 07/10/18 07/10/18 07/10/18 03:26 09:16 09:16 Creatine Kinase 48 L CK-MB (CK-2) 1.10 1.18 Troponin I 0.057 0.050 NT-Pro-B Natriuret Pep Impressions: Chest X-Ray 07/09/18 14:26 IMPRESSION: HEART ENLARGED WITHOUT FAILURE. NO OTHER SIGNIFICANT RADIOGRAPHIC FINDING IN THE CHEST. Assessment & Plan - Diagnosis (1) Bradycardia Is this a current diagnosis for this admission?: Yes Plan: Possibly secondary to additional dosing of medication. Patient recently reduced dose of Lopressor secondary to glaucoma. Will hold metoprolol and diltiazem pending rebound and heart rate. Follow-up cardiac enzymes 07/10/2018 patient is still bradycardic. Heart rate is in the 40s. Asymptomatic. Still in A. fib. Cardizem and metoprolol are on hold. Cardiology consult was requested. (2) Chronic atrial fibrillation Is this a current diagnosis for this admission?: Yes Plan: 07/10/2018 patient has history of atrial fibrillation on Coumadin at home. His heart rates in the 40s diltiazem and metoprolol are discontinued. The heart rate is about 60 plan is to resume diltiazem. (3) Type 2 diabetes mellitus Qualifiers: Diabetes mellitus termite exterminator helper insulin use: without penitentiary use Diabetes mellitus complication status: with unspecified complications Qualified Code(s): E11.8 - Type 2 diabetes mellitus with unspecified complications Is this a current diagnosis for this admission?: Yes Plan: 07/10/2018-patient has history of diabetes mellitus. Patient's latest blood sugar is 243. Patient is on Januvia/metformin at home. She is going to be on hold presently patient has insulin sliding scale. I am going to add Lantus 10 units twice a day to the present regimen for better control of the blood sugars and I am going to check his hemoglobin A1c tomorrow. (4) Hyperkalemia Is this a current diagnosis for this admission?: Yes Plan: 07/10/2018-patient's potassium at the time of admission is 5.9 without any EKG changes. Latest potassium is 5.4. He had a good bowel movement just a while ago. He is getting oral potassium supplementation at home which was on hold. Plan is to recheck his potassium levels tomorrow morning. (5) Morbid obesity Is this a current diagnosis for this admission?: Yes Plan: 07/10/2018-patient's BMI is more than 45 he is 6 feet 4 inches tall and weight more than 290 pounds. Diet exercise weight loss was advised lifestyle modifications are advised. Dietary consult was requested. (6) Sleep apnea Is this a current diagnosis for this admission?: Yes Plan: 07/10/2018-patient has obstructive sleep apnea uses BiPAP at home during the night. Plan is to resume the same treatment in the hospital. - Time Time Spent with patient: 15-24 minutes Medications reviewed and adjusted accordingly: Yes Anticipated discharge: Home
[2018-07-10] MEDS: GABAPENTIN 300 MG CAPSULE PO SCH ×2 (17:46→22:30)
[2018-07-10] MEDS: SPIRONOLACTONE 25 MG TABLET PO SCH (17:46)
[2018-07-10] MEDS: CETIRIZINE 10 MG TABLET PO SCH (17:46)
[2018-07-10] MEDS: FUROSEMIDE 80 MG TABLET PO SCH (17:46)
[2018-07-10] MEDS: FLUOXETINE HCL 20 MG CAPSULE PO SCH (17:46)
[2018-07-10] MEDS: CYANOCOBALAMIN (VITAMIN B-12) 1,000 MCG TABLET PO SCH (17:47)
[2018-07-10] MEDS: DORZOLAMIDE HCL 2%/TIMOLOL MALEAT 0.5% OPH SOLN 10 ML OU SCH (17:48)
[2018-07-10] MEDS: FLUTICASONE NASAL SPRAY 50 MCG/SPRY 120 SPRAY/16 GM NASL SCH (17:48)
[2018-07-10] MEDS ORDERED: FUROSEMIDE 40 MG TABLET PO SCH (18:00)
[2018-07-10] MEDS ORDERED: (PENDING PHARMACY ID) (Sitagliptin Phos/Metformin Hcl [Janumet 50-1,000 Mg Tablet] 1 TAB) PO SCH (18:00)
--- NOTE | 2018-07-10 20:31 | PDOC CONSULTATION ---
Consultation-Blank Consultation: CARDIOLOGY CONSULTATION by Dr. Ange Jacques on 07/10/2018. Patient seen at 3 PM on 07/10/2018. 60 minutes spent on this patient with more than 50% of time spent in direct patient care. The patient's reefer truck driver is Dr. Juan Asher in [facility]. REASON FOR CONSULTATION: Patient admitted with acute exacerbation of COPD, and renal failure and hyperkalemia, with bradycardia in a patient with chronic atrial fibrillation. HISTORY PRESENT ILLNESS: Patient is a 77-year-old male with known hist ory of hypertension, diabetes mellitus, chronic atrial fibrillation, COPD, and obstructive sleep apnea on CPAP, and obesity, and nonischemic cardiomyopathy with a LV ejection fraction of 40-45%, admitted with symptoms of increasing shortness of breath. Mildly increased leg edema especially on the right leg. And bradycardia. The patient's potassium was elevated at 5.9. This was corrected with Kayexalate. And subsequently potassium came to 5.4. Initially her heart rate was in the 40s and after his beta-rambo and calcium channel rambo was stopped his heart rate now is in the 50s. At no point even when the heart rate was in the 40s the patient had any dizziness or syncope or near syncope, and his blood pressure was stable. He denies that he also had some basic vague noncardiac chest pain. He complains of increasing shortness of breath over the past few days prior to admission with wheezing, and dry cough without any sputum production. There is no symptoms of upper or lower re spiratory tract infection recently. He is also has had a few bouts of explosive watery stools, without abdominal pain, and this seems to have resolved. PAST MEDICAL HISTORY: He has a history of obesity, hypertension, diabetes mellitus, most likely has chronic kidney disease, but the patient is not aware of this. He also has COPD, and obstructive sleep apnea and uses CPAP. He has a history of chronic atrial fibrillation, and is on chronic anticoagulation therapy with Coumadin. He in the past has had a cardiac catheterization with no significant coronary artery disease, and has a mild nonischemic dilated cardiomyopathy, with a LV ejection fraction of 40-45% as per records. No history of TIA or CVA. He has no history of pulmonary embolism. There is no history of thyroid disease. There is no history of GI bleed. He also has a history of depression. PAST SURGICAL HISTORY: He has a history of appendectomy and tonsillectomy. SOCIAL HISTORY: He is quit smoking 1981. There is no history of EtOH abuse. FAMILY HISTORY: Is positive for hypertension, negative for primary coronary artery disease or sudden . ALLERGIES: No known allergies. DISPOSITION: The patient is a full code. His is a surrogate healthcare decision maker. REVIEW SYSTEMS: CONSTITUTIONAL: Denies any fever chills or rigors. Complains of generalized fatigue and weakness. HEAD: No history of headaches or head injury. EYES: No history of amblyopia diplopia. No history of amaurosis fugax. EARS: No history of hearing loss. No history of tinnitus. No recurrent ear infections. No vertigo. NOSE: No history of hayfever. No history of nosebleeds. MOUTH: No history of altered taste sensation. No ulcers in the mouth. No bleeding from the gums. THROAT: No history of odynophagia or dysphagia. No history of recurrent sore throats SKIN: No history of pruritus. No history of yellowish discoloration of the skin. He has venous stasis dermatitis in the right lower extremity. There is no psoriasis. No history of skin cancer. NECK: No history of C-spine arthritis. No swelling in the neck. LUNGS: History of COPD. Recent symptoms of wheezing and cough without any sputum production. Increasing shortness of breath. Most likely has a bout of acute exacerbation of COPD. No history of pulmonary embolism. History of sleep apnea uses CPAP. No symptoms of upper or lower respiratory tract infection recently. No hemoptysis. No history of pleuritic chest pain. CARDIAC: History of hypertension present. No history of significant coronary artery disease. History of dilated nonischemic cardia myopathy, with a LV ejection fraction of 40-45%. Past history of congestive heart failure. History of chronic atrial fibrillation, at present bradycardic due to the patient's being on beta-rambo and calcium channel rambo and also hyperkalemia. Note that the patient has right lower extremity swelling and uses a sequential compression device for chronic lymphedema in the right leg. This the patient states happened after an injury to his knee with a chainsaw case. He sees Dr. Linda Hernandez for this. Recent symptoms are slightly increased swelling in both legs which is now i mproved after treatment in the emergency room. ENDOCRINE history of diabetes mellitus type 2. NO HISTORY OF THYROID DISEASE. NO HISTORY OF POLYDIPSIA POLYURIA NO HISTORY OF HEAT OR COLD INTOLERANCE. Muscular skeletal: History of chronic back pain present no history of collagen vascular disease. RENAL: The patient's labs suggest that the patient is CKD stage III but the patient is not aware of this. No symptoms of UTI. No hematuria pyuria or dysuria. GI: Occasional symptoms of GERD. No history of GI bleed. No history of arthritis. No history of jaundice. No history of fatty food intolerance. History of constipation, but recently prior to admission has been had some watery stools without abdominal pain. There is no increase or decrease in his appetite. BIZTALK ADMINISTRATOR: No history of TIA or CVA. No history of headaches migraines or seizures. PSYCHIATRIC: History of depression present well controlled with medication. No history of anxiety. No suicidal ideation. No homicidal ideation. Hematological: No history of bleeding diathesis no history of clotting disorders. VASCULAR: No history of calf or buttock claudication. Recent right lower extremity lymphedema due to trauma. No history of DVT. PHYSICAL EXAMINATION: The patient is moderately to morbidly obese. He is wearing a BiPAP. He is in mild respiratory distress. Selected Entries 07/10/18 07/10/18 15:26 16:00 Temperature 97.4 F Temperature Axillary Source Pulse Rate 64 Respiratory 28 H Rate Blood Pressure 115/68 Blood Pressure 83 Mean BP Location Left Arm BP Position Sitting O2 Sat by Pulse 99 Oximetry Fraction of 32 Inspired Oxygen (FIO2) Oxygen Delivery Bipap Method HEAD: Is atraumatic normocephalic. EYES: Pupils are equal round regular reac tive to light and accommodation. Extraocular movements are normal. There is no conjunctival pallor there is no scleral icterus. EARS: Tympanic membranes are intact. External auditory canals are clear. NOSE: There is no deviated nasal septum. There is no inflammation of the nasal mucous membrane. MOUTH: Mucous membranes of mouth are moist tongue is moist. There is no ulcers. There is no bleeding from the gums. THROAT: There is no redness of the oropharynx. There is no exudates. SKIN: There is no skin rashes there is no petechia. There is venous stasis dermatitis changes of his right lower extremity which has lymphedema which is 2+. NECK: Is supple. There is no definite JVD. Carotids are equal there is no bruit there is no lymphadenopathy. There is no accessory muscle respiration in use. Trachea central. LUNGS: There is diminished air entry and prolonged expiration. There is very occasional scattered rhonchi. There is no wheezing or rales. There is no rales of pneumonia or CHF. There is no chest wall tenderness. Heart S1-S2 is heard S1 is of variable intensity there is no S3 gallop there is no S4 gallop. There is systolic murmur in the left sternal border and the apex there is no rub ABDOMEN: Is obese, nontender there is no hepatosplenomegaly. Bowel sounds are well heard. There is no tender areas of masses. Extremities femorals are deep femorals are diminished. Leg pulses are difficult to palpate there is a 2+ lymphedema in the right lower extremity. There is no edema in the left lower extremity. There is venous stasis dermatitis changes in the right lower extremity. There is no sinus or clubbing. BIZTALK ADMINISTRATOR: The patient is conscious awake alert oriented x3 with no focal deficits. PSYCHIATRIC: The patient judgment insight are intact his affect is normal. 07/09/18 07/09/18 07/09/18 14:53 14:53 14:53 WBC 10.5 RBC 5.04 Hgb 14.2 Hct 43.3 MCV 86 MCH 28.1 MCHC 32.7 RDW 18.2 H Plt Count 138 L Seg Neutrophils % 74.2 Lymphocytes % 14.1 Monocytes % 11.5 Eosinophils % 0.0 Basophils % 0.2 Absolute Neutrophils 7.8 Absolute Lymphocytes 1.5 Absolute Monocytes 1.2 Absolute Eosinophils 0.0 Absolute Basophils 0.0 PT INR APTT Sodium 139.4 Potassium 5.9 H Chloride 100 Carbon Dioxide 24 Anion Gap 15 BUN 25 H Creatinine 1.43 H Est GFR (Non-Af Amer) 48 L Glucose 281 H POC Glucose Calcium 9.9 Magnesium Total Bilirubin 1.7 H Direct Bilirubin 0.9 H Neonat Total Bilirubin Not Reportable Neonat Direct Bilirubin Not Reportable Neonat Indirect Bili Not Reportable AST 41 ALT 27 Alkaline Phosphatase 169 H Creatine Kinase 35 L CK-MB (CK-2) 1.00 Troponin I 0.024 NT-Pro-B Natriuret Pep Total Protein 7.5 Albumin 4.6 TSH 07/09/18 07/09/18 07/09/18 14:53 14:53 21:07 WBC RBC Hgb Hct MCV MCH MCHC RDW Plt Count Seg Neutrophils % Lymphocytes % Monocytes % Eosinophils % Basophils % Absolute Neutrophils Absolute Lymphocytes Absolute Monocytes Absolute Eosinophils Absolute Basophils PT 20.8 H INR 1.70 APTT 42.6 H Sodium Potassium Chloride Carbon Dioxide Anion Gap BUN Creatinine Est GFR (Non-Af Amer) Glucose POC Glucose Calcium Magnesium Total Bilirubin Direct Bilirubin Neonat Total Bilirubin Neonat Direct Bilirubin Neonat Indirect Bili AST ALT Alkaline Phosphatase Creatine Kinase 45 L CK-MB (CK-2) Troponin I NT-Pro-B Natriuret Pep 532 H Total Protein Albumin TSH 07/09/18 07/09/18 07/10/18 21:07 22:24 03:26 WBC RBC Hgb Hct MCV MCH MCHC RDW Plt Count Seg Neutrophils % Lymphocytes % Monocytes % Eosinophils % Basophils % Absolute Neutrophils Absolute Lymphocytes Absolute Monocytes Absolute Eosinophils Absolute Basophils PT 21.0 H INR 1.72 APTT Sodium Potassium Chloride Carbon Dioxide Anion Gap BUN Creatinine Est GFR (Non-Af Amer) Glucose POC Glucose 201 H Calcium Magnesium Total Bilirubin Direct Bilirubin Neonat Total Bilirubin Neonat Direct Bilirubin Neonat Indirect Bili AST ALT Alkaline Phosphatase Creatine Kinase CK-MB (CK-2) 1.32 Troponin I 0.050 NT-Pro-B Natriuret Pep Total Protein Albumin TSH 07/10/18 07/10/18 07/10/18 03:26 03:26 03:26 WBC 11.5 H RBC 4.50 Hgb 12.8 L Hct 38.3 MCV 85 MCH 28.4 MCHC 33.4 RDW 18.4 H Plt Count 112 L Seg Neutrophils % 65.3 Lymphocytes % 20.1 Monocytes % 13.9 H Eosinophils % 0.3 Basophils % 0.4 Absolute Neutrophils 7.5 Absolute Lymphocytes 2.3 Absolute Monocytes 1.6 H Absolute Eosinophils 0.0 Absolute Basophils 0.0 PT INR APTT Sodium Potassium Chloride Carbon Dioxide Anion Gap BUN Creatinine Est GFR (Non-Af Amer) Glucose POC Glucose Calcium Magnesium Total Bilirubin Direct Bilirubin Neonat Total Bilirubin Neonat Direct Bilirubin Neonat Indirect Bili AST ALT Alkaline Phosphatase Creatine Kinase 47 L CK-MB (CK-2) 1.10 Troponin I NT-Pro-B Natriuret Pep Total Protein Albumin [facility] 07/10/18 07/10/18 07/10/18 03:26 03:26 06:27 WBC RBC Hgb Hct MCV MCH MCHC RDW Plt Count Seg Neutrophils % Lymphocytes % Monocytes % Eosinophils % Basophils % Absolute Neutrophils Absolute Lymphocytes Absolute Monocytes Absolute Eosinophils Absolute Basophils PT INR APTT Sodium 138.1 Potassium 5.4 H Chloride 103 Carbon Dioxide 22 Anion Gap 13 BUN 32 H Creatinine 1.52 H Est GFR (Non-Af Amer) 45 L Glucose 201 H POC Glucose 181 H Calcium 9.5 Magnesium 2.1 Total Bilirubin Direct Bilirubin Neonat Total Bilirubin Neonat Direct Bilirubin Neonat Indirect Bili AST ALT Alkaline Phosphatase Creatine Kinase CK-MB (CK-2) Troponin I NT-Pro-B Natriuret Pep Total Protein Albumin TSH 2.63 07/10/18 09:16 WBC RBC Hgb Hct MCV MCH MCHC RDW Plt Count Seg Neutrophils % Lymphocytes % Monocytes % Eosinophils % Basophils % Absolute Neutrophils Absolute Lymphocytes Absolute Monocytes Absolute Eosinophils Absolute Basophils PT INR APTT Sodium Potassium Chloride Carbon Dioxide Anion Gap BUN Creatinine Est GFR (Non-Af Amer) Glucose POC Glucose Calcium Magnesium Total Bilirubin Direct Bilirubin Neonat Total Bilirubin Neonat Direct Bilirubin Neonat Indirect Bili AST ALT Alkaline Phosphatase Creatine Kinase 48 L CK-MB (CK-2) Troponin I NT-Pro-B Natriuret Pep Total Protein Albumin TSH 07/09/18 19:59 Acetaminophen [Tylenol 325 mg Tablet] 650 mg PO Q4HP PRN Dextrose 50%-Water [Dextrose Inj 50% Syringe (25 gm/50 ml)] 12.5 gm IV PRN PRN Dextrose 50%-Water [Dextrose Inj 50% Syringe (25 gm/50 ml)] 25 gm IV PRN PRN Dextrose [Glutose 40% Gel 15 gm Tube] 15 gm PO PRN PRN Dextrose [Glutose 40% Gel 15 gm Tube] 30 gm PO PRN PRN Glucagon,Human Recombinant [Glucagen Inj 1 mg Vial] 1 mg IM PRN PRN Insulin Lispro [Humalog Insulin 100 Unit/1 ml 3 ml Vial] 0 - 12 unit SUBCUT ACP PRN Ipratropium/Albuterol Sulfate [Duoneb 3 ml Ampul] 3 ml NEB [id number] PRN Mag Hydrox/Al Hydrox/Simeth [Maalox Plus Susp 30 Udcup] 30 ml PO Q6HP PRN 07/10/18 01:54 Flu Vacc [id number](6Mos Up)/Pf [Fluarix Adlt Quad Vac 0.5 ml Syr] 0.5 ml IM .DISCHARGE PRN 07/10/18 10:00 Docusate Sodium [Colace 100 mg Capsule] 100 mg PO BID 07/10/18 15:00 Cetirizine HCl [Zyrtec 10 mg Tablet] 10 mg PO DAILY Cyanocobalamin (Vitamin B-12) [Vitamin B-12 1000 Mcg Tablet] 1,000 mcg PO DAILY Dorzolamide HCl/Timolol Maleat [Cosopt Oph Soln 10 ml] 1 drop OU DAILY Fluoxetine HCl [Prozac 20 mg Capsule] 40 mg PO DAILY Fluticasone Propionate [Flonase Nasal Ronks 50 Mcg/Ronks 16 gm] 1 spray NASL DAILY Furosemide [Lasix 80 mg Tablet] 80 mg PO DAILY Gabapentin [Neurontin 300 mg Capsule] 300 mg PO Q8 Spironolactone [Aldactone 25 mg Tablet] 12.5 mg PO DAILY 07/10/18 22:00 Latanoprost [Xalatan 0.005% Oph Soln 2.5 ml] 1 drop OU QHS Oxcarbazepine [Trileptal 150 mg Tablet] 300 mg PO Q12 Simvastatin [Zocor 10 mg Tablet] 20 mg PO QHS Trazodone HCl [Desyrel 50 mg Tablet] 50 mg PO QHS Warfarin Sodium [Coumadin 5 mg Tablet] 5 mg PO QHS 07/11/18 10:00 Empagliflozin [Jardiance] 10 mg PO .DAILY CHEST X-ray: Cardiomegaly without any heart failure. No infiltrates. The patient's EKG shows atrial fibrillation with a regularization of RR intervals with bradycardia. This suggests high-grade AV block. Poor R wave progression anterior leads. LVH with repolarization changes. IMPRESSION/RECOMMENDATION: 1. Bradycardia secondary to the patient's hyperkalemia [now resolved], and beta-rambo and Cardizem. Regularization of the RR intervals suggests high grade AV block, due to the patient's hyperkalemia, and the effect of the beta rambo and calcium channel rambo, and most likely has intrinsic AV artur disease along with sinus node disease. Heart rate much improved with the holding of the beta-rambo and the long-acting Cardizem preparation. Would later once the heart rate comes above 60 we will restart the patient on a small dose of Cardizem at 3 which is most likely secondary to the effect of hyperkalemia, the beta-rambo and calcium channel rambo, and suspect that the patient is interested AV artur disease along with sinus node disease. 0 mg p.o. every 8 hours and increase as tolerated and subsequently converted to a long- acting Cardizem preparation. 2. Chronic atrial fibrillation: Patient on Coumadin. Would recommend increasing the dose of Coumadin to be sure that the patient is therapeutic on Coumadin. 3. COPD acute exacerbation: Seems to be improving. 4. Hypertension: Blood pressure is well controlled. 5. Diabetes mellitus: Continue antidiabetic treatment and monitor blood sugars. 6. Mild dilated cardiac myopathy, nonischemic, with a LV ejection fraction of 40% to 55%. 7. Obstructive sleep apnea: Patient on CPAP continue CPAP therapy. 8. Morbid obesity. 9. Trauma to the right knee a few months ago with resultant venous stasis causing edema and with venous stasis dermatitis changes Medications reviewed: Medication changes discussed with the attending physician on the case. Management plan discussed with attending physician on the case. Medical decision making is of high complexity.
[2018-07-10] MEDS ORDERED: (PENDING PHARMACY ID) (Warfarin Sodium 5 MG) PO SCH (22:00)
[2018-07-10] MEDS ORDERED: (PENDING PHARMACY ID) (Oxcarbazepine [Trileptal] 300 MG) PO SCH (22:00)
[2018-07-10] MEDS: TRAZODONE HCL 50 MG TABLET PO SCH (22:30)
[2018-07-10] MEDS: WARFARIN SODIUM 5 MG TABLET PO SCH (22:30)
[2018-07-10] MEDS: OXCARBAZEPINE 150 MG TABLET PO SCH (22:30)
[2018-07-10] MEDS: SIMVASTATIN 10 MG TABLET PO SCH (22:30)
[2018-07-10] MEDS: INSULIN GLARGINE,HUM.REC.ANLOG 1,000 UNIT/10 ML UNIT SUBCUT SCH (22:31)
[2018-07-10] MEDS: LATANOPROST 0.005% OPH SOLN 2.5 ML OU SCH (22:32)
[2018-07-11 02:49] LABS: ABSOLUTE EOSINOPHILS # (AUTO) 0.2 10^3/uL (0.0-0.6); ABSOLUTE LYMPHOCYTES (AUTO) 1.6 10^3/uL (0.5-4.7); ABSOLUTE NEUT (AUTO) 4.6 10^3/uL (1.7-8.2); BASOPHILS % (AUTO) 0.6 % (0-2); EOSINOPHILS % (AUTO) 2.4 % (0-6); HEMOGLOBIN 12.2 g/dL (13.5-17.0); LYMPHOCYTES % (AUTO) 21.3 % (13-45); MEAN CORPUSCULAR HEMOGLOBIN 28.4 pg (27.0-33.4); MEAN CORPUSCULAR HGB CONC 33.8 g/dL (32.0-36.0); MEAN CORPUSCULAR VOLUME 84 fl (80-97); MONOCYTES % (AUTO) 13.4 % (3-13); PLATELET COUNT 110 10^3/uL (150-450); RED BLOOD COUNT 4.29 10^6/uL (4.35-5.55); RED CELL DISTRIBUTION WIDTH 18.3 % (11.5-14.0); SEGMENTED NEUTROPHILS % (AUTO) 62.3 % (42-78); TOTAL CELLS COUNTED % (AUTO) 100 %; WHITE BLOOD COUNT 7.3 10^3/uL (4.0-10.5)
[2018-07-11 03:01] LABS: INTERNATIONAL RATION (INR) 1.72
[2018-07-11 03:12] LABS: ALANINE AMINOTRANSFERASE 44 U/L (21-72); ALBUMIN 4.2 g/dL (3.5-5.0); ALKALINE PHOSPHATASE 133 U/L (38-126); ANION GAP 11 (5-19); ASPARTATE AMINO TRANSFERASE 62 U/L (17-59); BILIRUBIN,DIRECT 0.7 mg/dL (0.0-0.4); BILIRUBIN,TOTAL 1.4 mg/dL (0.2-1.3); BLOOD UREA NITROGEN 31 mg/dL (7-20); CARBON DIOXIDE 26 mmol/L (22-30); CHLORIDE 100 mmol/L (98-107); GLUCOSE 156 mg/dL (75-110); SODIUM 137.4 mmol/L (137-145); TOTAL PROTEIN 6.8 g/dL (6.3-8.2)
[2018-07-11 03:30] LABS: POTASSIUM 4.1 mmol/L (3.6-5.0)
[2018-07-11] MEDS: GABAPENTIN 300 MG CAPSULE PO SCH ×3 (05:26→22:53)
[2018-07-11] MEDS ORDERED: FUROSEMIDE 40 MG TABLET PO SCH (08:00)
[2018-07-11] MEDS: CETIRIZINE 10 MG TABLET PO SCH (09:50)
[2018-07-11] MEDS: DOCUSATE SODIUM 100 MG CAPSULE PO SCH ×2 (09:51→17:33)
[2018-07-11] MEDS: SPIRONOLACTONE 25 MG TABLET PO SCH (09:52)
[2018-07-11] MEDS: FLUOXETINE HCL 20 MG CAPSULE PO SCH (09:52)
[2018-07-11] MEDS: OXCARBAZEPINE 150 MG TABLET PO SCH ×2 (09:53→22:53)
[2018-07-11] MEDS: FUROSEMIDE 80 MG TABLET PO SCH (09:53)
[2018-07-11] MEDS: CYANOCOBALAMIN (VITAMIN B-12) 1,000 MCG TABLET PO SCH (09:55)
[2018-07-11] MEDS: INSULIN GLARGINE,HUM.REC.ANLOG 1,000 UNIT/10 ML UNIT SUBCUT SCH ×2 (09:55→22:54)
[2018-07-11] MEDS: DORZOLAMIDE HCL 2%/TIMOLOL MALEAT 0.5% OPH SOLN 10 ML OU SCH (09:58)
[2018-07-11] MEDS: FLUTICASONE NASAL SPRAY 50 MCG/SPRY 120 SPRAY/16 GM NASL SCH (09:58)
[2018-07-11] MEDS ORDERED: (PENDING PHARMACY ID) (Empagliflozin [Jardiance] 10 MG) PO SCH (10:00)
--- NOTE | 2018-07-11 10:35 | PDOC PROGRESS REPORT ---
Subjective Progress Note for:: 07/11/18 Subjective:: 77-year-old male referred to the ER for low heart rate. Patient has history of atrial fibrillation with heart rates in the 40s in the ER potassium is 5.9 without EKG changes. He had a good bowel movement this morning. Potassium came down to 5.4. He is taking potassium supplements at home those are discontinued. Patient is asymptomatic. Patient is on metoprolol and diltiazem at home those medications are on hold. Cardiology consult was requested. No acute events in the last 12 hours. 07/11/2018-no acute events in the last 24 hours. Patient is afebrile. Heart rate today is 59. Patient is asymptomatic. Pulse ox is 99%. Reason For Visit: BRADYCARDIA Physical Exam Vital Signs: Temp Pulse Resp BP Pulse Ox 97.9 F 59 L 23 H 117/58 L 99 07/11/18 07:34 07/11/18 07:34 07/11/18 07:34 07/11/18 07:34 07/11/18 07:34 Intake & Output 07/10/18 07/11/18 07/12/18 06:59 06:59 06:59 Intake Total 0 500 Output Total 300 Balance 0 200 Weight 135.4 kg 135.8 kg General appearance: PRESENT: other - Morbidly obese male not in distress. Head exam: PRESENT: atraumatic Eye exam: PRESENT: PERRLA Mouth exam: PRESENT: moist Teeth exam: PRESENT: poor dentation Neck exam: ABSENT: carotid bruit, JVD, lymphadenopathy, thyromegaly Respiratory exam: PRESENT: decreased breath sounds Cardiovascular exam: PRESENT: bradycardia, irregular rhythm, systolic murmur GI/Abdominal exam: PRESENT: normal bowel sounds, soft. ABSENT: distended, guarding, mass, organolmegaly, rebound, tenderness Extremities exam: PRESENT: +1 edema Neurological exam: PRESENT: alert, awake, oriented to person, oriented to place, oriented to time, oriented to situation, CN II-XII grossly intact. ABSENT: motor sensory deficit Psychiatric exam: PRESENT: appropriate affect, normal mood. ABSENT: homicidal ideation, suicidal ideation Results Laboratory Results: 07/11/18 02:40 07/11/18 02:40 07/11/18 07/11/18 02:40 02:40 WBC 7.3 RBC 4.29 L Hgb 12.2 L Hct 36.0 L MCV 84 MCH 28.4 MCHC 33.8 RDW 18.3 H Plt Count 110 L Seg Neutrophils % 62.3 Lymphocytes % 21.3 Monocytes % 13.4 H Eosinophils % 2.4 Basophils % 0.6 Absolute Neutrophils 4.6 Absolute Lymphocytes 1.6 Absolute Monocytes 1.0 Absolute Eosinophils 0.2 Absolute Basophils 0.0 Sodium 137.4 Potassium 4.1 D Chloride 100 Carbon Dioxide 26 Anion Gap 11 BUN 31 H Creatinine 1.20 Est GFR ( Amer) > 60 Est GFR (Non-Af Amer) 59 L Glucose 156 H Calcium 9.0 Magnesium 1.9 Total Bilirubin 1.4 H AST 62 H ALT 44 Alkaline Phosphatase 133 H Total Protein 6.8 Albumin 4.2 07/09/18 07/09/18 07/09/18 14:53 14:53 14:53 Creatine Kinase 35 L CK-MB (CK-2) 1.00 Troponin I 0.024 NT-Pro-B Natriuret Pep 532 H 07/09/18 07/09/18 07/10/18 21:07 21:07 03:26 Creatine Kinase 45 L 47 L CK-MB (CK-2) 1.32 Troponin I 0.050 NT-Pro-B Natriuret Pep 07/10/18 07/10/18 07/10/18 03:26 09:16 09:16 Creatine Kinase 48 L CK-MB (CK-2) 1.10 1.18 Troponin I 0.057 0.050 NT-Pro-B Natriuret Pep 07/11/18 02:40 Creatine Kinase CK-MB (CK-2) Troponin I NT-Pro-B Natriuret Pep 549 H Impressions: Chest X-Ray 07/09/18 14:26 IMPRESSION: HEART ENLARGED WITHOUT FAILURE. NO OTHER SIGNIFICANT RADIOGRAPHIC FINDING IN THE CHEST. Assessment & Plan - Diagnosis (1) Bradycardia Is this a current diagnosis for this admission?: Yes Plan: Possibly secondary to additional dosing of medication. Patient recently reduced dose of Lopressor secondary to glaucoma. Will hold metoprolol and diltiazem pending rebound and heart rate. Follow-up cardiac enzymes 07/10/2018 patient is still bradycardic. Heart rate is in the 40s. Asymptomatic. Still in A. fib. Cardizem and metoprolol are on hold. Cardiology consult was requested. 07/11/2018-heart rate today is 59. Patient is asymptomatic. Patient has history of chronic A. fib on Coumadin at home. INR is 1.72 today. He is taking Cardizem p.o. on metoprolol p.o. at home those are on hold. Dr. Jacques saw the patient yesterday we are waiting for the records from the patient's orthodontist Dr. Asher. Plan is to continue the present management. (2) Chronic atrial fibrillation Is this a current diagnosis for this admission?: Yes Plan: 07/10/2018 patient has history of atrial fibrillation on Coumadin at home. His heart rates in the 40s diltiazem and metoprolol are discontinued. The heart rate is about 60 plan is to resume diltiazem. 07/11/2018 patient has history of chronic A. fib on warfarin 5 mg at bedtime. His INR is 1.72 today. Plan is to recheck the INR tomorrow. (3) Type 2 diabetes mellitus Qualifiers: Diabetes mellitus correction insulin use: without correction use Diabetes mellitus complication status: with unspecified complications Qualified Code(s) : E11.8 - Type 2 diabetes mellitus with unspecified complications Is this a current diagnosis for this admission?: Yes Plan: 07/10/2018-patient has history of diabetes mellitus. Patient's latest blood sugar is 243. Patient is on Januvia/metformin at home. She is going to be on hold presently patient has insulin sliding scale. I am going to add Lantus 10 units twice a day to the present regimen for better control of the blood sugars and I am going to check his hemoglobin A1c tomorrow. 07/11/2017-hemoglobin A1c 6.9. Latest blood sugar is 129. Well controlled. Patient is presently on Lantus 10 units twice a day along with insulin sliding scale before meals and at bedtime. Dietary consult was requested,diet exercise weight loss was advised. (4) Hyperkalemia Is this a current diagnosis for this admission?: Yes Plan: 07/10/2018-patient's potassium at the time of admission is 5.9 without any EKG changes. Latest potassium is 5.4. He had a good bowel movement just a while ago. He is getting oral potassium supplementation at home which was on hold. Plan is to recheck his potassium levels tomorrow morning. 07/11/2018-repeat potassium today is 4.1. Hyperkalemia is resolved. Patient is on p.o. potassium at home which was on hold. Plan is to recheck the labs tomorrow. (5) Morbid obesity Is this a current diagnosis for this admission?: Yes Plan: 07/10/2018-patient's BMI is more than 45, he is 6 feet 4 inches tall and weight more than 290 pounds. Diet exercise weight loss was advised lifestyle modifications are advised. Dietary consult was requested. 07/11/2018-patient's BMI is more than 45. Again diet exercise weight loss and lifestyle modifications are discussed with the patient. Dietary consult was done. (6) Sleep apnea Is this a current diagnosis for this admission?: Yes Plan: 07/10/2018-patient has obstructive sleep apnea uses BiPAP at home during the night. Plan is to resume the same treatment in the hospital. 07/11/2018-patient is mildly obese obese with obstructive sleep apnea. He uses BiPAP at home. Plan is to continue the present management while he was in the hospital. - Time Time Spent with patient: 15-24 minutes Medications reviewed and adjusted accordingly: Yes Anticipated discharge: Home
[2018-07-11] MEDS: INSULIN LISPRO 100 UNIT/ML 3 ML VIAL SUBCUT PRN ×2 (13:55→17:59)
--- NOTE | 2018-07-11 18:34 | Progress Note ---
Provider Note Provider Note: CARDIOLOGY PROGRESS NOTE by Dr. Ange Jacques on 07/11/2018. SUBJECTIVE: The patient at present is on the BiPAP. He states that shortness of breath is much improved. The patient still is bradycardic but the heart rate is anywhere from 59 and sometimes goes into the low 60s. He is off the beta- rambo and the Cardizem. His potassium is now back to normal at 4.1. The patient denies any chest pain or discomfort. The patient does have orthopnea. He has no PND. He has chronic lymphedema of the right leg secondary to trauma. He has a sequential compression devices placed in the right lower extremity. There is no edema of the left lower extremity. Earlier today the patient had a asymptomatic run of short few beats of wide-complex tachycardia most likely atrial fibrillation with ablation of the right bundle branch block pattern. The patient has no TIA or CVA symptoms. There is no bleeding on Coumadin. The the patient's INR is subtherapeutic. PHYSICAL EXAMINATION: The patient is morbidly obese. At present he is in no acute distress in spite of him wearing BiPAP. Selected Entries 07/11/18 07:34 Temperature 97.9 F Temperature Axillary Source Pulse Rate 59 L Respiratory 23 H Rate Blood Pressure 117/58 L Blood Pressure 77 Mean BP Location Left Arm BP Position Sitting O2 Sat by Pulse 99 Oximetry Oxygen Delivery Bipap Method HEAD: Is atraumatic normocephalic. EYES: Pupils are equal round regular reactive to light and accommodation. Extraocular movements are normal. There is no conjunctival pallor there is no scleral icterus. EARS: Tympanic membranes are intact. External auditory canals are clear. NOSE: There is no deviated nasal septum. There is no inflammation of the nasal mucous membrane. MOUTH: Mucous membranes of mouth are moist tongue is moist. There is no ulcers. There is no bleeding from the gums. THROAT: There is no redness of the oropharynx. There is no exudates. SKIN: There is no skin rashes there is no petechia. There is venous stasis dermatitis changes of his right lower extremity which has lymphedema which is 2+. NECK: Is supple. There is no definite JVD. Carotids are equal there is no bruit there is no lymphadenopathy. There is no accessory muscle respiration in use. Trachea central. LUNGS: There is diminished air entry and prolonged expiration. There is very occasional scattered rhonchi. There is no wheezing or rales. There is no rales of pneumonia or CHF. There is no chest wall tenderness. Heart S1-S2 is heard S1 is of variable intensity there is no S3 gallop there is no S4 gallop. There is systolic murmur in the left sternal border and the apex there is no rub ABDOMEN: Is obese, nontender there is no hepatosplenomegaly. Bowel sounds are well heard. There is no tender areas of masses. Extremities femorals are deep femorals are diminished. Leg pulses are difficult to palpate there is a 2+ lymphedema in the right lower extremity. There is no edema in the left lower extremity. There is venous stasis dermatitis changes in the right lower extremity. There is no sinus or clubbing. PHARMACY INTAKE TECHNICIAN: The patient is conscious awake alert oriented x3 with no focal deficits. PSYCHIATRIC: The patient judgment insight are intact his affect is normal. 07/11/18 07/11/18 07/11/18 02:40 02:40 02:40 WBC RBC Hgb Hct MCV MCH MCHC RDW Plt Count Seg Neutrophils % Lymphocytes % Monocytes % Eosinophils % Basophils % Absolute Neutrophils Absolute Lymphocytes Absolute Monocytes Absolute Eosinophils Absolute Basophils PT 21.0 H INR 1.72 Sodium 137.4 Potassium 4.1 D Chloride 100 Carbon Dioxide 26 Anion Gap 11 BUN 31 H Creatinine 1.20 Est GFR (Non-Af Amer) 59 L Glucose 156 H Hemoglobin A1c % 6.9 H Calcium 9.0 Magnesium 1.9 Total Bilirubin 1.4 H Direct Bilirubin 0.7 H Neonat Total Bilirubin Not Reportable Neonat Direct Bilirubin Not Reportable Neonat Indirect Bili Not Reportable AST 62 H ALT 44 Alkaline Phosphatase 133 H NT-Pro-B Natriuret Pep Total Protein 6.8 Albumin 4.2 07/11/18 07/11/18 02:40 02:40 WBC 7.3 RBC 4.29 L Hgb 12.2 L Hct 36.0 L MCV 84 MCH 28.4 MCHC 33.8 RDW 18.3 H Plt Count 110 L Seg Neutrophils % 62.3 Lymphocytes % 21.3 Monocytes % 13.4 H Eosinophils % 2.4 Basophils % 0.6 Absolute Neutrophils 4.6 Absolute Lymphocytes 1.6 Absolute Monocytes 1.0 Absolute Eosinophils 0.2 Absolute Basophils 0.0 PT INR Sodium Potassium Chloride Carbon Dioxide Anion Gap BUN Creatinine Est GFR (Non-Af Amer) Glucose Hemoglobin A1c % Calcium Magnesium Total Bilirubin Direct Bilirubin Neonat Total Bilirubin Neonat Direct Bilirubin Neonat Indirect Bili AST ALT Alkaline Phosphatase NT-Pro-B Natriuret Pep 549 H Total Protein Albumin IMPRESSION/RECOMMENDATION: 1. Bradycardia secondary to the patient's hyperkalemia [now resolved], and beta-rambo and Cardizem. Heart rate much improved with the holding of the beta-rambo and the long-acting Cardizem preparation. Would later once the heart rate comes above 60 we will restart the patient on a small dose of Cardizem at 30 mg p.o. every 8 hours and increase as tolerated and subsequently converted to a long-acting Cardizem preparation. 2. Chronic atrial fibrillation: Patient on Coumadin. Would recommend increasing the dose of Coumadin to be sure that the patient is therapeutic on Coumadin. 3. COPD acute exacerbation: Seems to be improving. 4. Hypertension: Blood pressure is well controlled. 5. Diabetes mellitus: Continue antidiabetic treatment and monitor blood sugars. 6. Mild dilated cardiac myopathy, nonischemic, with a LV ejection fraction of 40% to 55%. 7. Obstructive sleep apnea: Patient on CPAP continue CPAP therapy. 8. Morbid obesity. 9. Trauma to the right knee a few months ago with resultant venous stasis causing edema and with venous stasis dermatitis changes Medications reviewed: Medication changes discussed with the attending physician on the case. Management plan discussed with attending physician on the case. Medical decision making is of high complexity. 40 minutes spent on this patient with more than 50% of time spent in direct patient care. The patient is a full code. His is his surrogate healthcare decision maker.
[2018-07-11] MEDS: SIMVASTATIN 10 MG TABLET PO SCH (22:53)
[2018-07-11] MEDS: WARFARIN SODIUM 5 MG TABLET PO SCH (22:53)
[2018-07-11] MEDS: TRAZODONE HCL 50 MG TABLET PO SCH (22:53)
[2018-07-11] MEDS: LATANOPROST 0.005% OPH SOLN 2.5 ML OU SCH (22:54)
[2018-07-12 05:03] LABS: INTERNATIONAL RATION (INR) 1.92; PROTHROMBIN TIME 22.9 SEC (11.4-15.4)
[2018-07-12 05:27] LABS: ALANINE AMINOTRANSFERASE 56 U/L (21-72); ALBUMIN 3.9 g/dL (3.5-5.0); ALKALINE PHOSPHATASE 120 U/L (38-126); ANION GAP 8 (5-19); ASPARTATE AMINO TRANSFERASE 60 U/L (17-59); BILIRUBIN,DIRECT 0.6 mg/dL (0.0-0.4); BILIRUBIN,TOTAL 1.2 mg/dL (0.2-1.3); BLOOD UREA NITROGEN 22 mg/dL (7-20); CALCIUM 8.6 mg/dL (8.4-10.2); CARBON DIOXIDE 30 mmol/L (22-30); CHLORIDE 99 mmol/L (98-107); GLUCOSE 124 mg/dL (75-110); POTASSIUM 3.4 mmol/L (3.6-5.0); SODIUM 137.1 mmol/L (137-145); TOTAL PROTEIN 6.7 g/dL (6.3-8.2)
[2018-07-12 05:49] LABS: HEMATOCRIT 34.5 % (37.9-51.0); HEMOGLOBIN 11.7 g/dL (13.5-17.0); MEAN CORPUSCULAR HEMOGLOBIN 28.4 pg (27.0-33.4); MEAN CORPUSCULAR HGB CONC 33.9 g/dL (32.0-36.0); MEAN CORPUSCULAR VOLUME 84 fl (80-97); PLATELET COUNT 101 10^3/uL (150-450); RED BLOOD COUNT 4.11 10^6/uL (4.35-5.55); RED CELL DISTRIBUTION WIDTH 18.1 % (11.5-14.0); WHITE BLOOD COUNT 5.8 10^3/uL (4.0-10.5)
[2018-07-12 05:57] LABS: ABSOLUTE LYMPHOCYTES# (MANUAL) 1.2 10^3/uL (0.5-4.7); ABSOLUTE MONOCYTES # (MANUAL) 1.1 10^3/uL (0.1-1.4); ABSOLUTE NEUTROPHILS# (MANUAL) 3.4 10^3/uL (1.7-8.2); BASOPHILS % (MANUAL) 0 % (0-2); EOSINOPHILS % (MANUAL) 1 % (0-6); LYMPHOCYTES % (MANUAL) 21 % (13-45); MONOCYTES % (MANUAL) 19 % (3-13); SEGMENTED NEUTROPHILS % (MAN) 59 % (42-78); TOTAL CELLS COUNTED 100
[2018-07-12 05:58] LABS: ANISOCYTOSIS 2+; PLATELET COMMENT ADEQUATE; POLYCHROMASIA 2+
[2018-07-12] MEDS: GABAPENTIN 300 MG CAPSULE PO SCH ×3 (06:08→21:43)
[2018-07-12] MEDS ORDERED: POTASSI CL 20 MEQ/50 ML RIDER 20 MEQ/50 ML RTUPB IV SCH (07:38)
[2018-07-12] MEDS: INSULIN GLARGINE,HUM.REC.ANLOG 1,000 UNIT/10 ML UNIT SUBCUT SCH ×2 (11:49→21:45)
[2018-07-12] MEDS: INSULIN LISPRO 100 UNIT/ML 3 ML VIAL SUBCUT PRN ×2 (11:49→17:05)
[2018-07-12] MEDS: SPIRONOLACTONE 25 MG TABLET PO SCH (11:50)
[2018-07-12] MEDS: DOCUSATE SODIUM 100 MG CAPSULE PO SCH ×2 (11:50→17:01)
[2018-07-12] MEDS: FUROSEMIDE 80 MG TABLET PO SCH (11:51)
[2018-07-12] MEDS: CYANOCOBALAMIN (VITAMIN B-12) 1,000 MCG TABLET PO SCH (11:52)
[2018-07-12] MEDS: FLUOXETINE HCL 20 MG CAPSULE PO SCH (11:52)
[2018-07-12] MEDS: CETIRIZINE 10 MG TABLET PO SCH (11:52)
[2018-07-12] MEDS: OXCARBAZEPINE 150 MG TABLET PO SCH ×2 (11:52→21:44)
[2018-07-12] MEDS: DORZOLAMIDE HCL 2%/TIMOLOL MALEAT 0.5% OPH SOLN 10 ML OU SCH (11:53)
[2018-07-12] MEDS: FLUTICASONE NASAL SPRAY 50 MCG/SPRY 120 SPRAY/16 GM NASL SCH (11:53)
--- NOTE | 2018-07-12 16:53 | Progress Note ---
Provider Note Provider Note: CARDIOLOGY PROGRESS NOTE by Dr. Cassidy has been on 07/12/2018. SUBJECTIVE: The patient on the BiPAP. At present he denies any chest pain or discomfort and denies any shortness of breath or wheezing he does have chronic orthopnea. There is no PND. The patient has no palpitations of the heart rate is in the high 50s. His Lopressor and Cardizem have been held the patient continues to be in atrial fibrillation. His INR is still slightly subtherapeutic but is 1.92. There is no TIA CVA symptoms. There is no bleeding on current dosing of Coumadin. PHYSICAL EXAMINATION: The patient is moderate to morbidly obese. At present in no acute distress although he is on a BiPAP. He is well-groomed. Selected Entries 07/12/18 07/12/18 11:33 13:41 Temperature 98.2 F Temperature Axillary Source Pulse Rate 59 L Respiratory 24 H Rate Blood Pressure 129/67 H Blood Pressure 87 Mean BP Location Left Arm BP Position Supine O2 Sat by Pulse 100 Oximetry Fraction of 30 Inspired Oxygen (FIO2) Oxygen Delivery Bipap Method HEAD: Is atraumatic normocephalic. EYES: Pupils are equal round regular reactive to light and accommodation. Extraocular movements are normal. There is no conjunctival pallor there is no scleral icterus. EARS: Tympanic membranes are intact. External auditory canals are clear. NOSE: There is no deviated nasal septum. There is no inflammation of the nasal mucous membrane. MOUTH: Mucous membranes of mouth are moist tongue is moist. There is no ulcers. There is no bleeding from the gums. THROAT: There is no redness of the oropharynx. There is no exudates. SKIN: There is no skin rashes there is no petechia. There is venous stasis dermatitis changes of his right lower extremity which has lymphedema which is 2+. NECK: Is supple. There is no definite JVD. Carotids are equal there is no bruit there is no lymphadenopathy. There is no accessory muscle respiration in use. Trachea central. LUNGS: There is diminished air entry and prolonged expiration. There is very occasional scattered rhonchi. There is no wheezing or rales. There is no rales of pneumonia or CHF. There is no chest wall tenderness. Heart S1-S2 is heard S1 is of variable intensity there is no S3 gallop there is no S4 gallop. There is systolic murmur in the left sternal border and the apex there is no rub ABDOMEN: Is obese, nontender there is no hepatosplenomegaly. Bowel sounds are well heard. There is no tender areas of masses. Extremities femorals are deep femorals are diminished. Leg pulses are difficult to palpate there is a 2+ lymphedema in the right lower extremity. There is no edema in the left lower extremity. There is venous stasis dermatitis changes in the right lower extremity. There is no sinus or clubbing. METAL BURNISHER: The patient is conscious awake alert oriented x3 with no focal deficits. PSYCHIATRIC: The patient judgment insight are intact his affect is normal. 07/12/18 07/12/18 07/12/18 04:37 04:37 04:37 WBC 5.8 RBC 4.11 L Hgb 11.7 L Hct 34.5 L MCV 84 MCH 28.4 MCHC 33.9 RDW 18.1 H Plt Count 101 L Total Counted 100 PT 22.9 H INR 1.92 Sodium 137.1 Potassium 3.4 L Chloride 99 Carbon Dioxide 30 Anion Gap 8 BUN 22 H Creatinine 0.88 Est GFR (Non-Af Amer) > 60 Glucose 124 H Calcium 8.6 Magnesium 1.7 Total Bilirubin 1.2 Direct Bilirubin 0.6 H Neonat Total Bilirubin Not Reportable Neonat Direct Bilirubin Not Reportable Neonat Indirect Bili Not Reportable AST 60 H ALT 56 Alkaline Phosphatase 120 NT-Pro-B Natriuret Pep Total Protein 6.7 Albumin 3.9 07/12/18 04:37 WBC RBC Hgb Hct MCV MCH MCHC RDW Plt Count Total Counted PT INR Sodium Potassium Chloride Carbon Dioxide Anion Gap BUN Creatinine Est GFR (Non-Af Amer) Glucose Calcium Magnesium Total Bilirubin Direct Bilirubin Neonat Total Bilirubin Neonat Direct Bilirubin Neonat Indirect Bili AST ALT Alkaline Phosphatase NT-Pro-B Natriuret Pep 580 H Total Protein Albumin IMPRESSION/RECOMMENDATION: 1. Bradycardia secondary to the patient's hyperkalemia [now resolved], and beta-rambo and Cardizem. Heart rate much improved with the holding of the beta-rambo and the long-acting Cardizem preparation. Would later once the heart rate comes above 60 we will restart the patient on a small dose of Cardizem at 30 mg p.o. every 8 hours and increase as tolerated and subsequently converted to a long-acting Cardizem preparation. At present the patient's heart rate is still on the lower side. 2. Chronic atrial fibrillation: Patient on Coumadin. Would recommend increasing the dose of Coumadin to be sure that the patient is therapeutic on Coumadin. 3. COPD acute exacerbation: Seems to be improving. 4. Hypertension: Blood pressure is well controlled. 5. Diabetes mellitus: Continue antidiabetic treatment and monitor blood sugars. 6. Mild dilated cardiac myopathy, nonischemic, with a LV ejection fraction of 40% to 55%. 7. Obstructive sleep apnea: Patient on CPAP continue CPAP therapy. 8. Morbid obesity. 9. Trauma to the right knee a few months ago with resultant venous stasis causing edema and with venous stasis dermatitis changes Medications reviewed: Medication changes discussed with the attending physician on the case. Management plan discussed with attending physician on the case. Medical decision making is of high complexity. 40 minutes spent on this patient with more than 50% of time spent in direct patient care. The patient is a full code. His is his surrogate healthcare decision maker.
--- NOTE | 2018-07-12 21:12 | PROGRESS NOTE E ---
Progress Note NAME: YELENA HOLM : 1940 AGE: 77Y DATE: 07/12/2018 ROOM: 321 SUBJECTIVE: The patient is a pleasant 77-year-old male who is referred to the ER because of bradycardia. He has a history of atrial fibrillation. His potassium was 5.9. Seen by cardiology. The patient is doing well today. His medication was held, he was on metoprolol and Cardizem. OBJECTIVE: GENERAL: The patient is lying in bed, comfortable, not in distress. VITAL SIGNS: Blood pressure is 118/75, temperature 98.1, heart rate 65, saturation 99. HEENT: Head normocephalic, atraumatic. Pupils round, reactive to light and accommodation bilaterally. Extraocular movements intact. Ears: Tympanic membranes intact bilaterally. No discharge from the ear. No discharge from the nose. NECK: Supple, no increased JVD, no thyromegaly, no lymphadenopathy. CARDIOVASCULAR: Normal S1, S2. Regular rate and rhythm. Bradycardic. RESPIRATORY: Lungs clear. ABDOMEN: Soft. MUSCULOSKELETAL: No edema. NEUROLOGIC: Awake, alert. SKIN: No rash. LABORATORY DATA: White blood count is 5.8, hemoglobin 11. Sodium 137, potassium 3.4, creatinine 0.1. ASSESSMENT AND PLAN: 1. BRADYCARDIA WHICH IS SECONDARY TO MEDICATIONS.Cardizem was held .On metoprolol 2. HYPERKALEMIA. Is improving today. His creatinine is 3.4. 3. DIABETES TYPE 2. 4. SLEEP APNEA ON BIPAP. PLAN: 1. Continue Lasix. 2. Continue spironolactone and statin. DICTATING PHYSICIAN: LORIN ACOSTA M.D. [id number] PHY#: [id number] ID: [id number] JOB#: [id number] ACCT: [id number] cc: > [id number]
[2018-07-12] MEDS: TRAZODONE HCL 50 MG TABLET PO SCH (21:43)
[2018-07-12] MEDS: SIMVASTATIN 10 MG TABLET PO SCH (21:44)
[2018-07-12] MEDS: WARFARIN SODIUM 5 MG TABLET PO SCH (21:44)
[2018-07-12] MEDS: LATANOPROST 0.005% OPH SOLN 2.5 ML OU SCH (21:45)
[2018-07-13 05:46] LABS: INTERNATIONAL RATION (INR) 1.96; PROTHROMBIN TIME 23.3 SEC (11.4-15.4)
[2018-07-13 05:59] LABS: HEMATOCRIT 34.7 % (37.9-51.0); HEMOGLOBIN 11.8 g/dL (13.5-17.0); MEAN CORPUSCULAR HEMOGLOBIN 28.4 pg (27.0-33.4); MEAN CORPUSCULAR HGB CONC 34.2 g/dL (32.0-36.0); MEAN CORPUSCULAR VOLUME 83 fl (80-97); RED BLOOD COUNT 4.16 10^6/uL (4.35-5.55); RED CELL DISTRIBUTION WIDTH 18.5 % (11.5-14.0); WHITE BLOOD COUNT 5.4 10^3/uL (4.0-10.5)
[2018-07-13 06:07] LABS: ALBUMIN 3.7 g/dL (3.5-5.0); ANION GAP 8 (5-19); BLOOD UREA NITROGEN 20 mg/dL (7-20); CALCIUM 8.3 mg/dL (8.4-10.2); CARBON DIOXIDE 29 mmol/L (22-30); CHLORIDE 99 mmol/L (98-107); GLUCOSE 142 mg/dL (75-110); PHOSPHORUS 2.5 mg/dL (2.5-4.5); POTASSIUM 3.4 mmol/L (3.6-5.0); SODIUM 135.7 mmol/L (137-145)
[2018-07-13] MEDS: GABAPENTIN 300 MG CAPSULE PO SCH ×3 (06:19→22:38)
[2018-07-13 06:50] LABS: PLATELET COUNT 93 10^3/uL (150-450)
[2018-07-13 06:51] LABS: ABSOLUTE LYMPHOCYTES# (MANUAL) 1.7 10^3/uL (0.5-4.7); ABSOLUTE NEUTROPHILS# (MANUAL) 2.6 10^3/uL (1.7-8.2); BASOPHILS % (MANUAL) 0 % (0-2); EOSINOPHILS % (MANUAL) 0 % (0-6); LYMPHOCYTES % (MANUAL) 32 % (13-45); MONOCYTES % (MANUAL) 19 % (3-13); PLATELET COMMENT DECREASED; SEGMENTED NEUTROPHILS % (MAN) 49 % (42-78); TOTAL CELLS COUNTED 100
[2018-07-13] MEDS: OXCARBAZEPINE 150 MG TABLET PO SCH ×2 (10:04→22:40)
[2018-07-13] MEDS: SPIRONOLACTONE 25 MG TABLET PO SCH (10:05)
[2018-07-13] MEDS: FUROSEMIDE 80 MG TABLET PO SCH (10:05)
[2018-07-13] MEDS: DOCUSATE SODIUM 100 MG CAPSULE PO SCH ×2 (10:06→17:17)
[2018-07-13] MEDS: INSULIN GLARGINE,HUM.REC.ANLOG 1,000 UNIT/10 ML UNIT SUBCUT SCH ×2 (10:06→22:40)
[2018-07-13] MEDS: CETIRIZINE 10 MG TABLET PO SCH (10:06)
[2018-07-13] MEDS: FLUOXETINE HCL 20 MG CAPSULE PO SCH (10:06)
[2018-07-13] MEDS: CYANOCOBALAMIN (VITAMIN B-12) 1,000 MCG TABLET PO SCH (10:06)
[2018-07-13] MEDS: FLUTICASONE NASAL SPRAY 50 MCG/SPRY 120 SPRAY/16 GM NASL SCH (10:07)
[2018-07-13] MEDS: DORZOLAMIDE HCL 2%/TIMOLOL MALEAT 0.5% OPH SOLN 10 ML OU SCH (10:07)
[2018-07-13] MEDS: INSULIN LISPRO 100 UNIT/ML 3 ML VIAL SUBCUT PRN (17:16)
--- NOTE | 2018-07-13 22:27 | Progress Note ---
Provider Note Provider Note: CARDIOLOGY PROGRESS NOTE by Dr. Ange Jacques on 07/13/2018 SUBJECTIVE: The patient denies any chest pain or discomfort. There is no shortness of breath. There is no PND. The patient has chronic orthopnea. There is no increase in the right leg edema. There is no edema in the left leg. The patient has no chest pain or discomfort. He continues to be bradycardic with a heart rate in the 50s. He is off the beta-rambo and the Cardizem. He has no bleeding on Coumadin. His INR is 1.96. There is no TIA CVA symptoms. There is no ventricular arrhythmia seen on the monitor. PHYSICAL EXAMINATION: The patient is moderately obese. At present in no acute distress. The patient is well-groomed. Selected Entries 07/13/18 11:46 Temperature 98.0 F Temperature Oral Source Pulse Rate 53 L Respiratory 20 Rate Blood Pressure 115/67 Blood Pressure 83 Mean BP Location Left Arm BP Position Supine O2 Sat by Pulse 94 Oximetry Oxygen Delivery Room Air Method HEAD: Is atraumatic normocephalic. EYES: Pupils are equal round regular reactive to light and accommodation. Extraocular movements are normal. There is no conjunctival pallor there is no scleral icterus. EARS: Tympanic membranes are intact. External auditory canals are clear. NOSE: There is no deviated nasal septum. There is no inflammation of the nasal mucous membrane. MOUTH: Mucous membranes of mouth are moist tongue is moist. There is no ulcers. There is no bleeding from the gums. THROAT: There is no redness of the oropharynx. There is no exudates. SKIN: There is no skin rashes there is no petechia. There is venous stasis dermatitis changes of his right lower extremity which has lymphedema which is 2+. NECK: Is supple. There is no definite JVD. Carotids are equal there is no bruit there is no lymphadenopathy. There is no accessory muscle respiration in use. Trachea central. LUNGS: There is diminished air entry and prolonged expiration. There is no rhonchi. There is no wheezing or rales. There is no rales of pneumonia or CHF. There is no chest wall tenderness. Heart S1-S2 is heard S1 is of variable intensity there is no S3 gallop there is no S4 gallop. There is systolic murmur in the left sternal border and the apex there is no rub ABDOMEN: Is obese, nontender there is no hepatosplenomegaly. Bowel sounds are well heard. There is no tender areas of masses. Extremities femorals are deep femorals are diminished. Leg pulses are difficult to palpate there is a 2+ lymphedema in the right lower extremity. There is no edema in the left lower extremity. There is venous stasis dermatitis changes in the right lower extremity. There is no sinus or clubbing. MEDICAL ORDERLY: The patient is conscious awake alert oriented x3 with no focal deficits. PSYCHIATRIC: The patient judgment insight are intact his affect is normal. 07/13/18 07/13/18 07/13/18 05:10 05:10 05:10 WBC 5.4 RBC 4.16 L Hgb 11.8 L Hct 34.7 L MCV 83 MCH 28.4 MCHC 34.2 RDW 18.5 H Plt Count 93 L Total Counted 100 PT 23.3 H INR 1.96 Sodium 135.7 L Potassium 3.4 L Chloride 99 Carbon Dioxide 29 Anion Gap 8 BUN 20 Creatinine 0.72 Est GFR (Non-Af Amer) > 60 Glucose 142 H Calcium 8.3 L Phosphorus 2.5 Albumin 3.7 IMPRESSION/RECOMMENDATION: 1. Bradycardia secondary to the patient's hyperkalemia [now resolved], and beta-rambo and Cardizem. Heart rate much improved with the holding of the beta-rambo and the long-acting Cardizem preparation. But asymptomatic bradycardia continues with a heart rate in the 50s hence would recommend discharging the patient without any beta-rambo or Cardizem. The patient and he has been advised, with a white present at the bedside, to contact Dr. Asher, patient's prospecting driller, for early appointment for further management of his atrial fibrillation and bradycardia. 2. Chronic atrial fibrillation: Patient on Coumadin. Would recommend increasing the dose of Coumadin to be sure that the patient is therapeutic on Coumadin. 3. COPD acute exacerbation: This seems to have resolved. Patient back to baseline. 4. Hypertension: Blood pressure is well controlled. 5. Diabetes mellitus: Continue antidiabetic treatment and monitor blood sugars. 6. Mild dilated cardiomyopathy, nonischemic, with a LV ejection fraction of 40% to 55%. 7. Obstructive sleep apnea: Patient on CPAP continue CPAP therapy. 8. Morbid obesity. 9. Trauma to the right knee a few months ago with resultant venous stasis causing edema and with venous stasis dermatitis changes Medications reviewed: As mentioned earlier recommendation made to hold the patient's Cardizem and beta-rambo on discharge. The patient will see Dr. Asher's follow-up to address these issues of bradycardia and atrial fibrillation. Continue Coumadin. Medical decision making is of moderate to high complexity. 40 minutes spent on this patient with more than 50% of time spent in direct patient care. Discussed with the patient patient's . We will try to get in touch with Dr. Asher tomorrow. Patient's cardiac status is stable in spite of the bradycardia, we will sign off.
[2018-07-13] MEDS: LATANOPROST 0.005% OPH SOLN 2.5 ML OU SCH (22:37)
[2018-07-13] MEDS: TRAZODONE HCL 50 MG TABLET PO SCH (22:38)
[2018-07-13] MEDS: WARFARIN SODIUM 5 MG TABLET PO SCH (22:38)
[2018-07-13] MEDS: SIMVASTATIN 10 MG TABLET PO SCH (22:40)
--- NOTE | 2018-07-13 22:53 | PROGRESS NOTE E ---
Progress Note NAME: YELENA HOLM : 1940 AGE: 77Y DATE: 07/13/2018 ROOM: 319 SUBJECTIVE: The patient is a pleasant 77-year-old male who had a past medical history of congestive heart failure, obstructive sleep apnea, admitted with COPD exacerbation, bradycardia. He was on Cardizem as well as metoprolol. All his medication was held. He also was hyperkalemic and his spironolactone was held. His potassium today is 3.4 and he was taking potassium also at home. OBJECTIVE: GENERAL: Patient lying in bed. VITAL SIGNS: Temperature is 97.1, heart rate 59, blood pressure 124/58, respiratory rate 20. HEENT: Normocephalic, atraumatic. Pupils round, reactive to light and accommodation. Bilateral extraocular movements intact. Ears: Tympanic membranes intact bilaterally. No discharge from the ears. No discharge from the nose. NECK: Supple. No increased JVD. No thyromegaly, no lymphadenopathy. CARDIOVASCULAR: S1, S2. Regular rate and rhythm. RESPIRATORY: Bilateral few wheezes and decreased air entry bilaterally. ABDOMEN: Obese. MUSCULOSKELETAL: No edema. NEUROLOGICAL: Awake, alert. LABORATORY DATA: White blood count 5.4, hemoglobin 11.8, hematocrit is 34. Sodium 135, potassium 3.4. ASSESSMENT AND PLAN: 1. BRADYCARDIA, SECONDARY TO HYPERKALEMIA, BETA MÓNICA AND CALCIUM CHANNEL MÓNICA, CARDIZEM, IMPROVED. This medication is on hold now and spironolactone and potassium supplement also are discontinued. 2. ATRIAL FIBRILLATION, ON COUMADIN. The patient is bradycardic now, but will monitor him closely. Probably he will need a small dose of Cardizem. He was taking 120 twice a day and metoprolol 25 twice a day. Probably he will be on just 1 medication upon discharge, probably Cardizem 80 mg every 8 hours and then titrate. Will increase Coumadin also to alternating 5 and 6 mg. He will get 7 mg today and then will monitor INR, so every day he will get 5 mg, but today he will get 7 mg. 3. CONGESTIVE HEART FAILURE, ON LASIX. The spironolactone was discontinued. 4. OBSTRUCTIVE SLEEP APNEA. 5. ACUTE HYPOXIC HYPERCARBIC RESPIRATORY FAILURE. The patient is on BiPAP at home, but he is not on home oxygen. He is saturating 94 on room air. He will be qualified for home oxygen. Will arrange that. 6. MORBID OBESITY. 7. Disposition: Home tomorrow morning, after arrangement of home oxygen. TIME SPENT: Twenty-five. DICTATING PHYSICIAN: LORIN ACOSTA M.D. [id number] PHY#: [id number] ID: [id number] JOB#: [id number] ACCT: [id number] cc: >
[2018-07-14] MEDS: GABAPENTIN 300 MG CAPSULE PO SCH ×3 (05:56→23:13)
[2018-07-14 06:37] LABS: ABSOLUTE EOSINOPHILS # (AUTO) 0.1 10^3/uL (0.0-0.6); ABSOLUTE LYMPHOCYTES (AUTO) 1.7 10^3/uL (0.5-4.7); ABSOLUTE MONOCYTES (AUTO) 0.9 10^3/uL (0.1-1.4); ABSOLUTE NEUT (AUTO) 2.5 10^3/uL (1.7-8.2); BASOPHILS % (AUTO) 0.7 % (0-2); EOSINOPHILS % (AUTO) 2.6 % (0-6); HEMATOCRIT 34.9 % (37.9-51.0); HEMOGLOBIN 11.9 g/dL (13.5-17.0); MEAN CORPUSCULAR HEMOGLOBIN 28.4 pg (27.0-33.4); MEAN CORPUSCULAR HGB CONC 34.1 g/dL (32.0-36.0); MEAN CORPUSCULAR VOLUME 83 fl (80-97); MONOCYTES % (AUTO) 16.6 % (3-13); RED BLOOD COUNT 4.19 10^6/uL (4.35-5.55); RED CELL DISTRIBUTION WIDTH 17.7 % (11.5-14.0); SEGMENTED NEUTROPHILS % (AUTO) 48.1 % (42-78); TOTAL CELLS COUNTED % (AUTO) 100 %; WHITE BLOOD COUNT 5.3 10^3/uL (4.0-10.5)
[2018-07-14 06:55] LABS: ALBUMIN 3.7 g/dL (3.5-5.0); ANION GAP 8 (5-19); BLOOD UREA NITROGEN 19 mg/dL (7-20); CALCIUM 8.6 mg/dL (8.4-10.2); CARBON DIOXIDE 31 mmol/L (22-30); CHLORIDE 99 mmol/L (98-107); GLUCOSE 139 mg/dL (75-110); PHOSPHORUS 2.8 mg/dL (2.5-4.5); POTASSIUM 3.3 mmol/L (3.6-5.0); SODIUM 137.7 mmol/L (137-145)
[2018-07-14 07:02] LABS: PLATELET COUNT 86 10^3/uL (150-450)
--- NOTE | 2018-07-14 10:03 | PDOC PROGRESS REPORT ---
Subjective Progress Note for:: 07/14/18 Subjective:: 77-year-old male referred to the ER for low heart rate. Patient has history of atrial fibrillation with heart rates in the 40s in the ER potassium is 5.9 without EKG changes. He had a good bowel movement this morning. Potassium came down to 5.4. He is taking potassium supplements at home those are discontinued. Patient is asymptomatic. Patient is on metoprolol and diltiazem at home those medications are on hold. Cardiology consult was requested. No acute events in the last 12 hours. 07/11/2018-no acute events in the last 24 hours. Patient is afebrile. Heart rate today is 59. Patient is asymptomatic. Pulse ox is 99%. 07/14/2018 no acute events in the last 24 hours. Patient is afebrile. Pulse ox on room air is 94%. With ambulation pulse ox dropped to 86%. After placing oxygen 2 L pulse ox went back up to 96%. So he may qualify for the home oxygen. He said he is aware and he wants to wait until the oxygen supplies are arranged. Cardiology consult was done Dr. Jacques's recommendation is not to give any beta blockers like metoprolol or Cardizem during the discharge. He is also recommended the patient follow to with Dr. Asher as out pt Reason For Visit: BRADYCARDIA Physical Exam Vital Signs: Temp Pulse Resp BP Pulse Ox 97.8 F 50 L 16 124/57 L 100 07/14/18 07:38 07/14/18 07:38 07/14/18 07:38 07/14/18 07:38 07/14/18 07:38 Intake & Output 07/13/18 07/14/18 07/15/18 06:59 06:59 06:59 Intake Total 1663 886 Output Total 500 Balance 1163 886 Weight 137.1 kg 121.1 kg General appearance: PRESENT: no acute distress Head exam: PRESENT: atraumatic Eye exam: PRESENT: PERRLA Mouth exam: PRESENT: moist Neck exam: ABSENT: carotid bruit, JVD, lymphadenopathy, thyromegaly Respiratory exam: PRESENT: decreased breath sounds Cardiovascular exam: PRESENT: bradycardia, systolic murmur GI/Abdominal exam: PRESENT: normal bowel sounds, soft. ABSENT: distended, guarding, mass, organolmegaly, rebound, tenderness Extremities exam: PRESENT: full ROM, +1 edema. ABSENT: calf tenderness, clubbing, pedal edema Neurological exam: PRESENT: alert, awake, oriented to person, oriented to place, oriented to time, oriented to situation, CN II-XII grossly intact. ABSENT: motor sensory deficit Psychiatric exam: PRESENT: appropriate affect, normal mood. ABSENT: homicidal ideation, suicidal ideation Results Laboratory Results: 07/14/18 05:55 07/14/18 05:55 07/14/18 07/14/18 05:55 05:55 WBC 5.3 RBC 4.19 L Hgb 11.9 L Hct 34.9 L MCV 83 MCH 28.4 MCHC 34.1 RDW 17.7 H Plt Count 86 L Seg Neutrophils % 48.1 Lymphocytes % 32.0 Monocytes % 16.6 H Eosinophils % 2.6 Basophils % 0.7 Absolute Neutrophils 2.5 Absolute Lymphocytes 1.7 Absolute Monocytes 0.9 Absolute Eosinophils 0.1 Absolute Basophils 0.0 Sodium 137.7 Potassium 3.3 L Chloride 99 Carbon Dioxide 31 H Anion Gap 8 BUN 19 Creatinine 0.77 Est GFR ( Amer) > 60 Est GFR (Non-Af Amer) > 60 Glucose 139 H Calcium 8.6 Phosphorus 2.8 Albumin 3.7 07/09/18 07/09/18 07/09/18 14:53 14:53 14:53 Creatine Kinase 35 L CK-MB (CK-2) 1.00 Troponin I 0.024 NT-Pro-B Natriuret Pep 532 H 07/09/18 07/09/18 07/10/18 21:07 21:07 03:26 Creatine Kinase 45 L 47 L CK-MB (CK-2) 1.32 Troponin I 0.050 NT-Pro-B Natriuret Pep 07/10/18 07/10/18 07/10/18 03:26 09:16 09:16 Creatine Kinase 48 L CK-MB (CK-2) 1.10 1.18 Troponin I 0.057 0.050 NT-Pro-B Natriuret Pep 07/11/18 07/12/18 02:40 04:37 Creatine Kinase CK-MB (CK-2) Troponin I NT-Pro-B Natriuret Pep 549 H 580 H Impressions: Chest X-Ray 07/09/18 14:26 IMPRESSION: HEART ENLARGED WITHOUT FAILURE. NO OTHER SIGNIFICANT RADIOGRAPHIC FINDING IN THE CHEST. Assessment & Plan - Diagnosis (1) Bradycardia Is this a current diagnosis for this admission?: Yes Plan: Possibly secondary to additional dosing of medication. Patient recently reduced dose of Lopressor secondary to glaucoma. Will hold metoprolol and diltiazem pending rebound and heart rate. Follow-up cardiac enzymes 07/10/2018 patient is still bradycardic. Heart rate is in the 40s. Asymptomatic. Still in A. fib. Cardizem and metoprolol are on hold. Cardiology consult was requested. 07/11/2018-heart rate today is 59. Patient is asymptomatic. Patient has history of chronic A. fib on Coumadin at home. INR is 1.72 today. He is taking Cardizem p.o. on metoprolol p.o. at home those are on hold. Dr. Jacques saw the patient yesterday we are waiting for the records from the patient's med peds Dr. Asher. Plan is to continue the present management. 07/14/2018 patient's heart rate is 50 asymptomatic. Bradycardia most likely secondary to hyperkalemia which was resolved, metprolol and Cardizem. Those medications are on hold. Patient and family is aware that they need to follow- up with Dr. Asher who is the patient's med peds in [facility] as an outpatient. (2) Chronic atrial fibrillation Is this a current diagnosis for this admission?: Yes Plan: 07/10/2018 patient has history of atrial fibrillation on Coumadin at home. His heart rates in the 40s diltiazem and metoprolol are discontinued. The heart rate is about 60 plan is to resume diltiazem. 07/11/2018 patient has history of chronic A. fib on warfarin 5 mg at bedtime. His INR is 1.72 today. Plan is to recheck the INR tomorrow. 07/14/2018 patient has history of chronic A. fib is on Coumadin at home,INR today is 1.96. We are going to check his INR today again. (3) Type 2 diabetes mellitus Qualifiers: Diabetes mellitus penitentiary insulin use: without termite exterminator helper use Diabetes mellitus complication status: with unspecified complications Qualified Code(s): E11.8 - Type 2 diabetes mellitus with unspecified complications Is this a current diagnosis for this admission?: Yes Plan: 07/10/2018-patient has history of diabetes mellitus. Patient's latest blood sugar is 243. Patient is on Januvia/metformin at home. She is going to be on hold presently patient has insulin sliding scale. I am going to add Lantus 10 units twice a day to the present regimen for better control of the blood sugars and I am going to check his hemoglobin A1c tomorrow. 07/11/2017-hemoglobin A1c 6.9. Latest blood sugar is 129. Well controlled. Patient is presently on Lantus 10 units twice a day along with insulin sliding scale before meals and at bedtime. Dietary consult was requested,diet exercise weight loss was advised. 07/14/2018 patient blood sugar is 134. Well-controlled. Dietary consult was done while he was in the hospital. Again diet exercise weight loss and lifestyle modifications are discussed with the patient and the family. Patient is on Lantus 10 units twice a day also insulin sliding scale before meals and at bedtime plan is to continue the current management during the hospital stay. (4) Hyperkalemia Is this a current diagnosis for this admission?: Yes Plan: 07/10/2018-patient's potassium at the time of admission is 5.9 without any EKG changes. Latest potassium is 5.4. He had a good bowel movement just a while ago. He is getting oral potassium supplementation at home which was on hold. Plan is to recheck his potassium levels tomorrow morning. 07/11/2018-repeat potassium today is 4.1. Hyperkalemia is resolved. Patient is on p.o. potassium at home which was on hold. Plan is to recheck the labs tomorrow. 07/14/2018-patient came in with elevated potassium 5.9. Today's potassium is 3.3 hyperkalemia was resolved. Plan is to give a small dose of potassium 20 mg p.o. 1 dose. (5) Morbid obesity Is this a current diagnosis for this admission?: Yes Plan: 07/10/2018-patient's BMI is more than 45, he is 6 feet 4 inches tall and weight more than 290 pounds. Diet exercise weight loss was advised lifestyle modifications are advised. Dietary consult was requested. 07/11/2018-patient's BMI is more than 45. Again diet exercise weight loss and lifestyle modifications are discussed with the patient. Dietary consult was done. 07/14/2018-patient's BMI is more than 45 .dietary consult was pending. (6) Sleep apnea Is this a current diagnosis for this admission?: Yes Plan: 07/10/2018-patient has obstructive sleep apnea uses BiPAP at home during the night. Plan is to resume the same treatment in the hospital. 07/11/2018-patient is mildly obese obese with obstructive sleep apnea. He uses BiPAP at home. Plan is to continue the present management while he was in the hospital. 07/14/2017 patient has history of CPAP uses BiPAP at home. No problems during the hospital stay. Plan is to continue the present management. (7) CHF (congestive heart failure) Is this a current diagnosis for this admission?: Yes Plan: 07/14/2018-patient has history of congestive heart failure on P do not have any recent echocardiogram. Requested for echocardiogram today. Spironolactone was discontinued because he came in with hyperkalemia. Plan is to continue Lasix 80 mg p.o. daily. - Time Time Spent with patient: 15-24 minutes Medications reviewed and adjusted accordingly: Yes Anticipated discharge: Home
[2018-07-14] MEDS: INSULIN GLARGINE,HUM.REC.ANLOG 1,000 UNIT/10 ML UNIT SUBCUT SCH ×2 (10:06→22:08)
[2018-07-14] MEDS: FLUOXETINE HCL 20 MG CAPSULE PO SCH (10:08)
[2018-07-14] MEDS: OXCARBAZEPINE 150 MG TABLET PO SCH ×2 (10:09→21:30)
[2018-07-14] MEDS: FUROSEMIDE 80 MG TABLET PO SCH (10:10)
[2018-07-14] MEDS: CYANOCOBALAMIN (VITAMIN B-12) 1,000 MCG TABLET PO SCH (10:10)
[2018-07-14] MEDS: DOCUSATE SODIUM 100 MG CAPSULE PO SCH ×2 (10:10→19:09)
[2018-07-14] MEDS: CETIRIZINE 10 MG TABLET PO SCH (10:10)
[2018-07-14 10:44] LABS: INTERNATIONAL RATION (INR) 1.96; PROTHROMBIN TIME 23.3 SEC (11.4-15.4)
[2018-07-14] MEDS ORDERED: POTASSIUM CHLORIDE 10 MEQ CAPSULE.ER PO ONE ×2 (11:00→13:13)
[2018-07-14] MEDS: INSULIN LISPRO 100 UNIT/ML 3 ML VIAL SUBCUT PRN ×2 (13:09→22:08)
[2018-07-14] MEDS: FLUTICASONE NASAL SPRAY 50 MCG/SPRY 120 SPRAY/16 GM NASL SCH (13:15)
[2018-07-14] MEDS: DORZOLAMIDE HCL 2%/TIMOLOL MALEAT 0.5% OPH SOLN 10 ML OU SCH (13:15)
--- NOTE | 2018-07-14 21:04 | XCELERA REPORT ---
[address] [address] Transthoracic Echocardiogram Report Name: YELENA HOLM Age: 77 yrs Gender: Male : 1940 Patient Status: Inpatient Patient Location: [address] [place], [place] [address] Study Date: 07/14/2018 11:14 AM Height: 76 in Weight: 266 lb BSA: 2.5 m2 Procedure: A two-dimensional transthoracic echocardiogram with color flow and Doppler was performed. The study was technically difficult with many images being suboptimal in quality. Images were not obtained from all of the standard acoustic windows due to the limited scope of the study. Reason For Study: chf History: CHF. Ordering Physician: MELVIN PHILIPPE Performed By: Zain Perry Interpretation Summary The left ventricle is borderline dilated. There is normal left ventricular wall thickness. No True apical 2 chamber views obtained.Hence cannot comment on the apical anterior , the basal anterior, the basal inferior and apical inferior blanton.The mid anterior , the mid inferior and the rest of the LV blanton contract normally. .Normal LVEF is normal and is greater than 60% in the limited views. There is no thrombus. The right ventricle is not well visualized secondary to technical limitations SUSPECT RV ENLARGEMENT. The right atrium is mild to moderately dilated. The left atrium is severely dilated. There is no evidence of mitral valve prolapse. There is no vegetation seen on the mitral valve. There is no mitral valve stenosis. There is a mild amount of mitral regurgitation There is no aortic valvular vegetation. There is no aortic valve stenosis There is no LVOT obstruction. No aortic regurgitation is present. The aortic root is normal size. The inferior vena cava appeared dilated and decreased < 50% with respiration (RAP 15-20 mmHg) There is no tricuspid stenosis. There is a moderate to severe amount of tricuspid regurgitation There is servere pulmonary hypertension by echo RVSP IS 75 TO 80 MM OF Hg , with RA mean OF 15 TO 20. There is no pulmonic valvular stenosis. There is no pulmonic valvular regurgitation. There is no pericardial effusion. MMode/2D Measurements & Calculations RVDd: 3.8 cm LVIDd: 5.8 cm FS: 37.6 % Ao root diam: 3.1 cm IVSd: 0.94 cm LVIDs: 3.7 cm EDV(Teich): 169.6 ml Ao root area: 7.6 cm2 LVPWd: 1.0 cm ESV(Teich): 56.3 ml LA dimension: 5.7 cm EF(Teich): 66.8 % Doppler Measurements & Calculations MV E max luna: MV P1/2t max luna: Ao V2 max: LV V1 max P.6 cm/sec 123.5 cm/sec 141.8 cm/sec 5.6 mmHg MV P1/2t: 100.7 msec Ao max P.0 mmHg LV V1 max: MVA(P1/2t): 2.2 cm2 118.0 cm/sec MV dec slope: 359.4 cm/sec2 MV dec time: 0.20 sec PA V2 max: TR max luna: MV P1/2t-pr_phl: 75.0 cm/sec 386.9 cm/sec 100.7 msec PA max PG: TR max P.9 mmHg 2.3 mmHg Left Ventricle The left ventricle is borderline dilated. There is normal left ventricular wall thickness. No True apical 2 chamber views obtained.Hence cannot comment on the apical anterior , the basal anterior, the basal inferior and apical inferior blanton.The mid anterior , the mid inferior and the rest of the LV blanton contract normally. .Normal LVEF is normal and is greater than 60% in the limited views. LV diastolic function could not be adequately assessed due to atrial fibrilation. There is no thrombus. Right Ventricle The right ventricle is not well visualized secondary to technical limitations. SUSPECT RV ENLARGEMENT. Atria The right atrium is mild to moderately dilated. The left atrium is severely dilated. Mitral Valve There is no evidence of mitral valve prolapse. There is no vegetation seen on the mitral valve. There is no mitral valve stenosis. There is a mild amount of mitral regurgitation. Aortic Valve There is no aortic valvular vegetation. There is no aortic valve stenosis. There is no LVOT obstruction. No aortic regurgitation is present. Tricuspid Valve There is no tricuspid stenosis. There is a moderate to severe amount of tricuspid regurgitation. There is servere pulmonary hypertension by echo. RVSP IS 75 TO 80 MM OF Hg , with RA mean OF 15 TO 20. Pulmonic Valve There is no pulmonic valvular stenosis. There is no pulmonic valvular regurgitation. Great Vessels The aortic root is normal size. The inferior vena cava appeared dilated and decreased < 50% with respiration (RAP 15-20 mmHg). Effusions There is no pericardial effusion. : MELVIN PHILIPPE > Ange Jacques
[2018-07-14] MEDS: WARFARIN SODIUM 5 MG TABLET PO SCH (21:30)
[2018-07-14] MEDS: LATANOPROST 0.005% OPH SOLN 2.5 ML OU SCH (21:31)
[2018-07-14] MEDS: SIMVASTATIN 10 MG TABLET PO SCH (21:31)
[2018-07-14] MEDS: TRAZODONE HCL 50 MG TABLET PO SCH (21:31)
[2018-07-15 05:12] LABS: INTERNATIONAL RATION (INR) 2.03; PROTHROMBIN TIME 23.9 SEC (11.4-15.4)
[2018-07-15] MEDS: GABAPENTIN 300 MG CAPSULE PO SCH (05:23)
[2018-07-15] MEDS: DOCUSATE SODIUM 100 MG CAPSULE PO SCH (09:36)
[2018-07-15] MEDS: OXCARBAZEPINE 150 MG TABLET PO SCH (09:37)
[2018-07-15] MEDS: FLUOXETINE HCL 20 MG CAPSULE PO SCH (09:37)
[2018-07-15] MEDS: CYANOCOBALAMIN (VITAMIN B-12) 1,000 MCG TABLET PO SCH (09:37)
[2018-07-15] MEDS: CETIRIZINE 10 MG TABLET PO SCH (09:37)
[2018-07-15] MEDS: FUROSEMIDE 80 MG TABLET PO SCH (09:38)
[2018-07-15] MEDS: INSULIN GLARGINE,HUM.REC.ANLOG 1,000 UNIT/10 ML UNIT SUBCUT SCH (09:39)
[2018-07-15] MEDS: DORZOLAMIDE HCL 2%/TIMOLOL MALEAT 0.5% OPH SOLN 10 ML OU SCH (09:40)
[2018-07-15] MEDS: FLUTICASONE NASAL SPRAY 50 MCG/SPRY 120 SPRAY/16 GM NASL SCH (09:41)
[2018-07-15 11:17] LABS: ARTERIAL BLOOD BASE EXCESS 5.1 mmol/L; ARTERIAL BLOOD H2CO3 1.41 mmol/L (1.05-1.35); ARTERIAL BLOOD HCO3 30.2 mmol/L (20-24); ARTERIAL BLOOD O2 SATURATION 97.7 % (94-98); ARTERIAL BLOOD PCO2 46.7 mmHg (35-45); ARTERIAL BLOOD PH 7.43 (7.35-7.45); ARTERIAL BLOOD PO2 100.5 mmHg (80-100); ARTERIAL BLOOD TOTAL CO2 31.7 mmol/L (23-27)
[2018-07-15 11:18] LABS: ARTERIAL BLOOD FIO2 30%
[2018-07-15] MEDS: INSULIN LISPRO 100 UNIT/ML 3 ML VIAL SUBCUT PRN (13:07)
--- NOTE | 2018-07-15 13:17 | PDOC DISCHARGE SUMMARY ---
General - Admit/Disc Date/PCP Admission Date/Primary Care Provider: 07/10/18 13:03 Discharge Date: 07/15/18 - Discharge Diagnosis (1) Bradycardia Is this a current diagnosis for this admission?: Yes Summary: Possibly secondary to additional dosing of medication. Patient recently reduced dose of Lopressor secondary to glaucoma. Will hold metoprolol and diltiazem pending rebound and heart rate. Follow-up cardiac enzymes 07/10/2018 patient is still bradycardic. Heart rate is in the 40s. Asymptomatic. Still in A. fib. Cardizem and metoprolol are on hold. Cardiology consult was requested. 07/11/2018-heart rate today is 59. Patient is asymptomatic. Patient has history of chronic A. fib on Coumadin at home. INR is 1.72 today. He is taking Cardizem p.o. on metoprolol p.o. at home those are on hold. Dr. Jacques saw the patient yesterday we are waiting for the records from the patient's ton cylinder inspector Dr. Asher. Plan is to continue the present management. 07/14/2018 patient's heart rate is 50 asymptomatic. Bradycardia most likely secondary to hyperkalemia which was resolved, metprolol and Cardizem. Those medications are on hold. Patient and family is aware that they need to follow- up with Dr. Asher who is the patient's ton cylinder inspector in [facility] as an o utpatient. 07/15/2018-patient heart rate today is in the 60s. Patient is asymptomatic. Patient has history of chronic A. fib on Coumadin. Patient was on metoprolol and Cardizem to start on hold. Patient was advised to not to take those medications until he sees Dr. Asher. Patient and family agreed with the plan. Patient is on Coumadin 5 mg p.o. nightly INR is 2.03. (2) Chronic atrial fibrillation Is this a current diagnosis for this admission?: Yes Summary: 07/10/2018 patient has history of atrial fibrillation on Coumadin at home. His heart rates in the 40s diltiazem and metoprolol are discontinued. The heart rate is about 60 plan is to resume diltiazem. 07/11/2018 patient has history of chronic A. fib on warfarin 5 mg at bedtime. His INR is 1.72 today. Plan is to recheck the INR tomorrow. 07/14/2018 patient has history of chronic A. fib is on Coumadin at home,INR today is 1.96. We are going to check his INR today again. 07/15/2018 patient has history of chronic atrial fibrillation on Coumadin at home. INR is 2.03. Patient was advised to continue the same dose of Coumadin 5 mg at night at home. Patient was strongly advised not to take metoprolol and Cardizem until he sees his ton cylinder inspector . (3) Type 2 diabetes mellitus Is this a current diagnosis for this admission?: Yes Summary: 07/10/2018-patient has history of diabetes mellitus. Patient's latest blood sugar is 243. Patient is on Januvia/metformin at home. She is going to be on hold presently patient has insulin sliding scale. I am going to add Lantus 10 units twice a day to the present regimen for better control of the blood sugars and I am going to check his hemoglobin A1c tomorrow. 07/11/2017-hemoglobin A1c 6.9. Latest blood sugar is 129. Well controlled. Lupe sparks is presently on Lantus 10 units twice a day along with insulin sliding scale before meals and at bedtime. Dietary consult was requested,diet exercise weight loss was advised. 07/14/2018 patient blood sugar is 134. Well-controlled. Dietary consult was done while he was in the hospital. Again diet exercise weight loss and lifestyle modifications are discussed with the patient and the family. Patient is on Lantus 10 units twice a day also insulin sliding scale before meals and at bedtime plan is to continue the current management during the hospital stay. 07/15/2018 patient blood sugar today is 233. Hemoglobin A1c 6.9. Patient is on Lantus 10 units twice a day along with insulin sliding scale. Patient was advised to continue his home medication Januvia/metformin. Dietary consult was done while he was in the hospital. Diet exercise weight loss was strongly advised. (4) Hyperkalemia Is this a current diagnosis for this admission?: Yes Summary: 07/10/2018-patient's potassium at the time of admission is 5.9 without any EKG changes. Latest potassium is 5.4. He had a good bowel movement just a while ago. He is getting oral potassium supplementation at home which was on hold. Plan is to recheck his potassium levels tomorrow morning. 07/11/2018-repeat potassium today is 4.1. Hyperkalemia is resolved. Patient is on p.o. potassium at home which was on hold. Plan is to recheck the labs tomorrow. 07/14/2018-patient came in with elevated potassium 5.9. Today's potassium is 3.3 hyperkalemia was resolved. Plan is to give a small dose of potassium 20 mg p.o. 1 dose. 07/15/2018 patient came in with elevated potassium levels of 5.9. Yesterday's potassium is 3.3. Given a small dose of potassium supplementation. Hyperkalemia is resolved. (5) Morbid obesity Is this a current diagnosis for this admission?: Yes Summary: 07/10/2018-patient's BMI is more than 45, he is 6 feet 4 inches tall and weight more than 290 pounds. Diet exercise weight loss was advised lifestyle modifications are advised. Dietary consult was requested. 07/11/2018-patient's BMI is more than 45. Again diet exercise weight loss and lifestyle modifications are discussed with the patient. Dietary consult was done. 07/14/2018-patient's BMI is more than 45 .dietary consult was pending. 07/15/2018 patient BMI is more than 45. Diet exercise weight loss and complex medication was advised. Lifestyle modifications are discussed with the patient. (6) Sleep apnea Is this a current diagnosis for this admission?: Yes Summary: 07/10/2018-patient has obstructive sleep apnea uses BiPAP at home during the night. Plan is to resume the same treatment in the hospital. 07/11/2018-patient is mildly obese obese with obstructive sleep apnea. He uses BiPAP at home. Plan is to continue the present management while he was in the hospital. 07/14/2018 patient has history of sleep apnea uses BiPAP at home. No problems during the hospital stay. Plan is to continue the present management. 07/15/2018-patient has history of sleep apnea uses BiPAP at home. We continue to provide BiPAP to the patient while he was in the hospital. (7) CHF (congestive heart failure) Is this a current diagnosis for this admission?: Yes Summary: 07/14/2018-patient has history of congestive heart failure on P do not have any recent echocardiogram. Requested for echocardiogram today. Spironolactone was discontinued because he came in with hyperkalemia. Plan is to continue Lasix 80 mg p.o. daily. 07/15/2017-patient has history of congestive heart failure left ventricular ejection fraction is more than 60. Unable to assess the left ventricular diastolic dysfunction secondary to chronic atrial fibrillation. He has chronic congestive heart failure. - Additional Information Resuscitation Status: Full Code Discharge Diet: Diabetic Discharge Activity: Activity As Tolerated Home Medications: Cetirizine HCl [Zyrtec 10 mg Tablet] 10 mg PO DAILY 07/09/18 Cyanocobalamin (Vitamin B-12) [Vitamin B-12 1000 mcg Tablet] 1,000 mcg PO DAILY 07/09/18 Dorzolamide HCl/Timolol Maleat [Cosopt Oph Soln 10 ml] 1 drop OU DAILY 07/09/18 Empagliflozin [Jardiance] 10 mg PO DAILY 07/09/18 Fluoxetine HCl [Prozac] 40 mg PO DAILY 07/09/18 Fluticasone Propionate [Flonase Nasal [place] 50 Mcg/[place] 16 gm] 1 spray NASL DAILY 07/09/18 Furosemide [Lasix 40 mg Tablet] 40 mg PO QPM 07/09/18 Furosemide [Lasix 40 mg Tablet] 80 mg PO QAM 07/09/18 Gabapentin [Neurontin 300 mg Capsule] 300 mg PO Q8 07/09/18 Latanoprost [Xalatan 0.005% Oph Soln 2.5 ml] 1 drop OU QHS 07/09/18 Oxcarbazepine [Trileptal] 300 mg PO Q12 07/09/18 Pantoprazole Sodium [Protonix] 40 mg PO DAILY 07/09/18 Potassium Chloride [K-Tab ER] 20 meq PO DAILY 07/09/18 Sildenafil Citrate [Viagra] 100 mg PO DAILYP PRN 07/09/18 Simvastatin [Zocor 20 mg Tablet] 20 mg PO QHS 07/09/18 Sitagliptin Phos/Metformin HCl [Janumet 50-1,000 mg Tablet] 1 tab PO BID Spironolactone [Aldactone 25 mg Tablet] 12.5 mg PO DAILY 07/09/18 Trazodone HCl [Desyrel 50 mg Tablet] 50 mg PO QHS 07/09/18 Warfarin Sodium [Coumadin 5 mg Tablet] 5 mg PO QHS 07/09/18 History of Present Illness History of Present Illness: YELENA HOLM is a 77 year old male patient of Dr. Payne primary care and Dr. Asher cardiology. With a past medical history of morbid obesity, obstructive sleep apnea, atrial fibrillation, chronic venous stasis and diabetes. He presents after 3 days of shortness of breath prompting evaluation with cardiology where he is found to bradycardic. He is referred to the emergency department and found with atrial fibrillation in the 40s and potassium of 5.9 without T wave changes. He denies recent change in medications but otherwise complains of abdominal distention and several weeks of constipation. He cannot recall his last normal bowel movement but is having episodes of explosive watery stool. He denies chest pain, palpitations, nausea vomiting or diaphoresis. He is referred to the hospitalist for admission pain- free. Physical Exam Vital Signs: Temp Pulse Resp BP Pulse Ox 97.5 F 44 L 16 121/56 L 100 07/15/18 08:09 07/15/18 08:09 07/15/18 12:23 07/15/18 08:09 07/15/18 08:09 Intake & Output 07/14/18 07/15/18 07/16/18 06:59 06:59 06:59 Intake Total 886 1333 Balance 886 1333 Weight 121.1 kg 123.1 kg General appearance: PRESENT: mild distress, obese, other - Obese male Head exam: PRESENT: atraumatic Eye exam: PRESENT: PERRLA Mouth exam: PRESENT: dry mucosa Teeth exam: PRESENT: poor dentation Neck exam: ABSENT: carotid bruit, JVD, lymphadenopathy, thyromegaly Respiratory exam: PRESENT: decreased breath sounds Cardiovascular exam: PRESENT: bradycardia, irregular rhythm, systolic murmur GI/Abdominal exam: PRESENT: other - Obese abdomen soft nontender and bowel sounds are present. Extremities exam: PRESENT: full ROM, +1 edema. ABSENT: calf tenderness, clubbing, pedal edema Neurological exam: PRESENT: alert, awake, oriented to person, oriented to place, oriented to time, oriented to situation, CN II-XII grossly intact. ABSENT: motor sensory deficit Psychiatric exam: PRESENT: appropriate affect, normal mood. ABSENT: homicidal ideation, suicidal ideation Results Laboratory Results: 07/14/18 05:55 07/14/18 05:55 07/15/18 11:00 Carbonic Acid 1.41 H HCO3/H2CO3 Ratio 21:1 ABG pH 7.43 ABG pCO2 46.7 H ABG pO2 100.5 H ABG HCO3 30.2 H ABG O2 Saturation 97.7 ABG Base Excess 5.1 FiO2 30% 07/09/18 07/09/18 07/09/18 14:53 14:53 14:53 Creatine Kinase 35 L CK-MB (CK-2) 1.00 Troponin I 0.024 NT-Pro-B Natriuret Pep 532 H 07/09/18 07/09/18 07/10/18 21:07 21:07 03:26 Creatine Kinase 45 L 47 L CK-MB (CK-2) 1.32 Troponin I 0.050 NT-Pro-B Natriuret Pep 07/10/18 07/10/18 07/10/18 03:26 09:16 09:16 Creatine Kinase 48 L CK-MB (CK-2) 1.10 1.18 Troponin I 0.057 0.050 NT-Pro-B Natriuret Pep 07/11/18 07/12/18 02:40 04:37 Creatine Kinase CK-MB (CK-2) Troponin I NT-Pro-B Natriuret Pep 549 H 580 H Impressions: Chest X-Ray 07/09/18 14:26 IMPRESSION: HEART ENLARGED WITHOUT FAILURE. NO OTHER SIGNIFICANT RADIOGRAPHIC FINDING IN THE CHEST. Qualifiers - * PATIENT BEING DISCHARGED WITH ANY OF THE FOLLOWING DIAGNOSIS: No VTE patient discharged on overlapping Therapy?: Yes
[2018-07-15 13:40] VITALS: BP 128/64
== END 2018-07-15 15:58 | disposition home or self-care (01) | DRG 308 ==
LOC: ER 13:40 → INTOOBSV 20:06 → EH 20:06 → 3W 21:42 → OBSVTOIN 07-10 13:03 → 3W 07-10 15:24
PROVIDERS: ADMIT Internal Medicine; ATTEND Internal Medicine
DX: I48.2 Chronic atrial fibrillation (principal); J96.02 Acute respiratory failure with hypercapnia; J96.01 Acute respiratory failure with hypoxia; J44.1 Chronic obstructive pulmonary disease with (acute) exacerbation; Z68.42 Body mass index [BMI] 45.0-49.9, adult; R00.1 Bradycardia, unspecified; E87.5 Hyperkalemia; I42.8 Other cardiomyopathies; E11.8 Type 2 diabetes mellitus with unspecified complications; I50.9 Heart failure, unspecified; I11.0 Hypertensive heart disease with heart failure; E78.5 Hyperlipidemia, unspecified; E78.00 Pure hypercholesterolemia, unspecified; E86.0 Dehydration; K59.00 Constipation, unspecified; E66.01 Morbid (severe) obesity due to excess calories; H40.9 Unspecified glaucoma; G47.33 Obstructive sleep apnea (adult) (pediatric); F32.9 Major depressive disorder, single episode, unspecified; Z79.01 Long term (current) use of anticoagulants; Z79.84 Long term (current) use of oral hypoglycemic drugs; Z79.899 Other long term (current) drug therapy; Z87.891 Personal history of nicotine dependence
CPT/HCPCS: 36415; 36600; 71045; 80048; 80053; 80069; 81001; 82550; 82553; 82803; 82962; 83036; 83735; 83880; 84443; 84484; 85025; 85610; 85730; 93005; 93010; 93306; 94640; 94660; 96361; 96365; 96375; 99291; G0378; J0610; J1815; J2405; J3490; J7030; J7620

== ENCOUNTER 2018-09-20 12:04 | Emergency (ER) | payer MEDICARE, OTHER ==
[~2018-09-20 12:04] MED LIST: ETOMIDATE INJ/PF 20 MG/10 ML SDV IV ONE
[2018-09-20] MEDS ORDERED: VECURONIUM BROMIDE INJ 10 MG VIAL IV ONE ×2 (12:19→12:27)
[2018-09-20] MEDS ORDERED: PROPOFOL 1,000 MG/100 ML INFUS..BTL IV ONE (12:19)
[2018-09-20] MEDS ORDERED: AMIODARONE HCL INJ 150 MG/3 ML VIAL IV ONE (12:22)
[2018-09-20] MEDS ORDERED: ETOMIDATE INJ/PF 20 MG/10 ML SDV IV ONE (12:27)
[2018-09-20] MEDS ORDERED: ROCURONIUM BROMIDE INJ 50 MG/5 ML VIAL IV ONE (12:27)
[2018-09-20] MEDS ORDERED: PROPOFOL 1,000 MG/100 ML INFUS..BTL IV PRN (12:28)
[2018-09-20] MEDS ORDERED: MEROPENEM 1 GM VIAL IV ONE (12:29)
[2018-09-20] MEDS ORDERED: DILTIAZEM HCL/D5W 125 MG/125 ML RTUINJ IV PRN (12:31)
[2018-09-20] MEDS ORDERED: DILTIAZEM HCL INJ 25 MG/5 ML VIAL ONE (12:40)
--- NOTE | 2018-09-20 12:46 | RADIOLOGY REPORT (SQ) ---
EXAM DESCRIPTION: CHEST SINGLE VIEW COMPLETED DATE/TIME: 09/20/2018 12:34 pm REASON FOR STUDY: sob COMPARISON: 07/09/2018. NUMBER OF VIEWS: One view. TECHNIQUE: Single frontal radiographic view of the chest acquired. LIMITATIONS: None. FINDINGS: LUNGS AND PLEURA: Bilateral perihilar infiltrates. Right pleural effusion. MEDIASTINUM AND HILAR STRUCTURES: No masses or contour abnormality. HEART AND VASCULATURE: Cardiac enlargement. Vascular congestion. BONES: No acute findings. HARDWARE: Endotracheal tube. Tip located approximately 4 cm proximal to the valentin. Nasogastric tub e with the tip not visualized but located in the upper abdomen. OTHER: No other significant finding. IMPRESSION: 1. LIFE LINES APPEAR TO BE IN APPROPRIATE POSITION. 2. CARDIOMEGALY WITH VASCULAR CONGESTION. RIGHT PLEURAL EFFUSION. PERIHILAR INFILTRATES LIKELY DUE TO PULMONARY EDEMA ALTHOUGH PNEUMONIA CANNOT BE EXCLUDED. TECHNICAL DOCUMENTATION: JOB ID: [id number] [employer]- All Rights Reserved Reading location - IP/workstation name: [email or web address]
[2018-09-20 12:47] LABS: HEMATOCRIT 40.9 % (37.9-51.0); HEMOGLOBIN 13.4 g/dL (13.5-17.0); MEAN CORPUSCULAR HEMOGLOBIN 27.8 pg (27.0-33.4); MEAN CORPUSCULAR HGB CONC 32.8 g/dL (32.0-36.0); MEAN CORPUSCULAR VOLUME 85 fl (80-97); PLATELET COUNT 140 10^3/uL (150-450); RED BLOOD COUNT 4.83 10^6/uL (4.35-5.55); RED CELL DISTRIBUTION WIDTH 18.8 % (11.5-14.0); WHITE BLOOD COUNT 12.1 10^3/uL (4.0-10.5)
[2018-09-20 12:51] LABS: ALANINE AMINOTRANSFERASE 18 U/L (21-72); ALBUMIN 4.3 g/dL (3.5-5.0); ALKALINE PHOSPHATASE 203 U/L (38-126); ANION GAP 12 (5-19); ASPARTATE AMINO TRANSFERASE 39 U/L (17-59); BILIRUBIN,DIRECT 1.6 mg/dL (0.0-0.4); BILIRUBIN,TOTAL 2.3 mg/dL (0.2-1.3); BLOOD UREA NITROGEN 25 mg/dL (7-20); CALCIUM 9.4 mg/dL (8.4-10.2); CARBON DIOXIDE 28 mmol/L (22-30); CHLORIDE 103 mmol/L (98-107); CREATINE KINASE 34 U/L (55-170); GLUCOSE 211 mg/dL (75-110); POTASSIUM 4.2 mmol/L (3.6-5.0); TOTAL PROTEIN 7.5 g/dL (6.3-8.2)
[2018-09-20] MEDS: NORMAL SALINE 1000 ML 1,000 ML IV PRN ×2 (12:53→14:05)
[2018-09-20 12:54] LABS: INTERNATIONAL RATION (INR) 1.91; PROTHROMBIN TIME 22.8 SEC (11.4-15.4)
[2018-09-20 12:55] LABS: PARTIAL THROMBOPLASTIN TIME 43.9 SEC (23.5-35.8)
[2018-09-20 12:59] LABS: APPEARANCE,URINE SLIGHTLY-CLOUDY; BILIRUBIN,URINE NEGATIVE (NEGATIVE); COLOR,URINE AMBER; GLUCOSE, URINE >=500 mg/dL (NEGATIVE); KETONES,URINE TRACE mg/dL (NEGATIVE); LEUKOCYTE ESTERASE,URINE NEGATIVE (NEGATIVE); NITRITE,URINE NEGATIVE (NEGATIVE); PROTEIN,URINE 100 mg/dL (NEGATIVE); URINE SPECIFIC GRAVITY 1.023
[2018-09-20 13:01] LABS: CREATINE KINASE MB 0.28 ng/mL (<4.55)
[2018-09-20 13:03] LABS: TROPONIN I 0.105 ng/mL
[2018-09-20 13:12] LABS: ABSOLUTE LYMPHOCYTES# (MANUAL) 2.5 10^3/uL (0.5-4.7); ABSOLUTE NEUTROPHILS# (MANUAL) 9.4 10^3/uL (1.7-8.2); BAND NEUTROPHILS % (MANUAL) 1 % (3-5); BASOPHILS % (MANUAL) 1 % (0-2); EOSINOPHILS % (MANUAL) 0 % (0-6); LYMPHOCYTES % (MANUAL) 21 % (13-45); MONOCYTES % (MANUAL) 0 % (3-13); SEGMENTED NEUTROPHILS % (MAN) 77 % (42-78); TOTAL CELLS COUNTED 100
[2018-09-20] MEDS ORDERED: ALBUTEROL SULFATE 0.083% NEB 2.5 MG/3 ML AMPUL NEB ONE (13:13)
[2018-09-20 13:15] LABS: ANISOCYTOSIS 2+; OVALOCYTES 1+; PLATELET CLUMPS PRESENT; PLATELET COMMENT DECREASED; POIKILOCYTOSIS 1+
[2018-09-20 13:41] LABS: ARTERIAL BLOOD BASE EXCESS -5.4 mmol/L; ARTERIAL BLOOD FIO2 100%; ARTERIAL BLOOD H2CO3 1.55 mmol/L (1.05-1.35); ARTERIAL BLOOD HCO3 22.2 mmol/L (20-24); ARTERIAL BLOOD O2 SATURATION 97.7 % (94-98); ARTERIAL BLOOD PCO2 51.4 mmHg (35-45); ARTERIAL BLOOD PH 7.25 (7.35-7.45); ARTERIAL BLOOD PO2 118.3 mmHg (80-100); ARTERIAL BLOOD TOTAL CO2 23.8 mmol/L (23-27)
--- NOTE | 2018-09-20 14:04 | RADIOLOGY REPORT (SQ) ---
EXAM DESCRIPTION: CT HEAD WITHOUT COMPLETED DATE/TIME: 09/20/2018 1:59 pm REASON FOR STUDY: altered mental status COMPARISON: 08/21/2014. TECHNIQUE: Axial images acquired through the brain without intravenous contrast. Images reviewed wi th bone, brain and subdural windows. Additional sagittal and coronal reconstructions were generated. Images stored on PACS. All CT scanners at this facility use dose modulation, iterative reconstruction, and/or weight based d osing when appropriate to reduce radiation dose to as low as reasonably achievable (ALARA). [facility]: Dose Right [facility]: CareDose [facility]: Dose Right [facility]: Teradose 4D [facility]: Smart 5 O'Clock Records RADIATION DOSE: CT Rad equipment meets quality standard of care and radiation dose reduction techniq ues were employed. CTDIvol: 53.2 mGy. DLP: 1124 mGy-cm. mGy. LIMITATIONS: None. FINDINGS: VENTRICLES: Prominent. CEREBRUM: No masses. No hemorrhage. No midline shift. Areas of low density in the white matter mos t likely due to chronic micro-vascular ischemic change. No evidence for acute infarction. CEREBELLUM: No masses. No hemorrhage. No alteration of density. No evidence for acute infarction. EXTRAAXIAL SPACES: Mild age-related involutional change. No fluid collections. No masses. ORBITS AND GLOBE: No intra- or extraconal masses. Normal contour of globe without masses. CALVARIUM: No fracture. PARANASAL SINUSES: No fluid or mucosal thickening. SOFT TISSUES: No mass or hematoma. OTHER: No other significant finding. IMPRESSION: MILD CHRONIC CHANGES OF ATROPHY AND MICROVASCULAR ISCHEMIA. NO ACUTE PROCESS. EVIDENCE OF ACUTE STROKE: NO. TECHNICAL DOCUMENTATION: JOB ID: [id number] Quality ID # [id number]: Final reports with documentation of one or more dose reduction techniques (e.g., Au tomated exposure control, adjustment of the mA and/or kV according to patient size, use of iterative reconstruction technique) 2010 [employer]- All Rights Reserved Reading location - IP/workstation name: [email or web address]
--- NOTE | 2018-09-20 14:12 | RADIOLOGY REPORT (SQ) ---
EXAM DESCRIPTION: CTA CHEST COMPLETED DATE/TIME: 09/20/2018 1:59 pm REASON FOR STUDY: hypoxic resp failure COMPARISON: None. TECHNIQUE: CT scan of the chest performed using helical scanning technique with dynamic intravenous contrast injection. Images reviewed with lung, soft tissue and bone windows. Reconstructed coronal and sagittal MPR images reviewed. Additional 3 dimensional post-processing performed to develop Maximal Intensity Projection images (ID P). All images stored on PACS. All CT scanners at this facility use dose modulation, iterative reconstruction, and/or weight based d osing when appropriate to reduce radiation dose to as low as reasonably achievable (ALARA). [facility]: Dose Right [facility]: CareDose [facility]: Dose Right [facility]: Teradose 4D [facility]: [place] CONTRAST TYPE AND DOSE: 90 mL Omnipaque 350- low osmolar. Contrast bolus adequate for pulmonary arteries and aorta. RENAL FUNCTION: BUN 25 creatinine 1.11. RADIATION DOSE: CT Rad equipment meets quality standard of care and radiation dose reduction techniq ues were employed. CTDIvol: 29.8 - 41.3 mGy. DLP: 1126 mGy-cm. . LIMITATIONS: Streak artifact due to patient positioning. FINDINGS: LUNGS AND PLEURA: Large bilateral pleural effusions. Consolidations in the lower lobes, l eft greater than right, with patchy perihilar airspace disease as well. AORTA AND GREAT VESSELS: No aneurysm. Contrast bolus not optimized for the aorta. HEART: No pericardial effusion. No significant coronary artery calcifications. PULMONARY ARTERIES: No emboli visualized in the main pulmonary arteries or the segmental branches. HILAR AND MEDIASTINAL STRUCTURES: Mild mediastinal adenopathy, the largest lymph node measures just o jad 1 cm. HARDWARE: Endotracheal tube and nasogastric tube. UPPER ABDOMEN: No significant findings. Limited exam. THYROID AND OTHER SOFT TISSUES: No masses. No adenopathy. BONES: No acute or significant finding. 3D MIPS: Confirm above findings. OTHER: No other significant finding. IMPRESSION: 1. NORMAL CTA OF THE CHEST. NO PULMONARY EMBOLI. 2. LARGE BILATERAL PLEURAL EFFUSIONS, PROBABLY DUE TO CONGESTIVE HEART FAILURE. CONSOLIDATIONS IN TH E LOWER LOBES AND PATCHY PERIHILAR AIRSPACE DISEASE PROBABLY DUE TO COMPRESSIVE ATELECTASIS AND PULMO NARY EDEMA. PNEUMONIA CANNOT BE EXCLUDED. COMMENT: Quality ID # [id number]: Final reports with documentation of one or more dose reduction techniques (e.g., Automated exposure control, adjustment of the mA and/or kV according to patient size, use of iterative reconstruction technique) TECHNICAL DOCUMENTATION: JOB ID: [id number] [employer]- All Rights Reserved Reading location - IP/workstation name: [email or web address]
[2018-09-20] MEDS ORDERED: AMIODARONE HCL 300 MG in DEXTROSE 5%-WATER 100 ML IV ONE (15:00)
[2018-09-20] MEDS ORDERED: DILTIAZEM HCL INJ 25 MG/5 ML VIAL IV ONE (15:00)
--- NOTE | 2018-09-20 15:07 | ER Document Report ---
ED General - General Chief Complaint: Respiratory Distress Stated Complaint: RESPIRATORY DISTRESS Time Seen by Provider: 09/20/18 12:27 Primary Care Provider: COLTEN BARBA MD [Primary Care Provider] - Follow up as needed Notes: 77-year-old male to the emergency department via EMS for evaluation of respiratory arrest. Patient found by family members this morning unresponsive. EMS arrived. Patient with sonorous respirations. Oxygen saturations of 50%. No gag reflex. Oral airway was placed and patient was rapidly transferred to the emergency department. Oxygen saturations were 50% in route. Family member states that he has atrial fibrillation. States that he sees Dr. Asher with cardiology in [facility]. Recently has had pleural effusions which required pleurocentesis. Patient seen immediately on arrival. Patient has no corneal reflex. Minimal gag reflex. Large amount of blood in the posterior pharynx. Please see procedure notes below. TRAVEL OUTSIDE OF THE [place] IN LAST 30 DAYS: No - HPI Onset: This morning - Related Data Allergies/Adverse Reactions: No Known Allergies Allergy (Verified 07/09/18 13:41) Past Medical History - General Information source: Emergency Med Personnel, [facility] Records Cannot obtain history due to: Altered mental status - Social History Smoking Status: Former Smoker Family History: Hypertension Patient has suicidal ideation: No Patient has homicidal ideation: No - Past Medical History Cardiac Medical History: Reports: Hx Atrial Fibrillation, Hx Congestive Heart Failure, Hx Hypercholesterolemia, Hx Hypertension Denies: Hx Heart Attack Pulmonary Medical History: Reports: Hx COPD, Hx Pneumonia, Hx Sleep Apnea Denies: Hx Asthma Neurological Medical History: Denies: Hx Cerebrovascular Accident, Hx Seizures Endocrine Medical History: Reports: Hx Diabetes Mellitus Type 2 Renal/ Medical History: Denies: Hx Peritoneal Dialysis GI Medical History: Denies: Hx Hepatitis, Hx Hiatal Hernia, Hx Ulcer Psychiatric Medical History: Reports: Hx Depression Infectious Medical History: Denies: Hx Hepatitis Past Surgical History: Reports: Hx Appendectomy, Hx Tonsillectomy. Denies: Hx Open Heart Surgery, Hx Pacemaker - Immunizations Hx Diphtheria, Pertussis, Tetanus Vaccination: Yes Hx Pneumococcal Vaccination: 03/24/14 Review of Systems - Review of Systems -: Yes ROS unobtainable due to patient's medical condition Physical Exam - Vital signs Vitals: Resp Pulse Ox 33 H 80 L 09/20/18 12:08 09/20/18 12:08 Interpretation: Tachycardic, Hypoxic, Febrile - General Notes: Unresponsive, ill-appearing. - HEENT Head: Normocephalic, Atraumatic Eyes: Normal Pupils: PERRL - Right eye is minimally reactive, left eye seems fixed. Red conjunctiva bilaterally. Notes: Large amount of blood in the posterior pharynx - Respiratory Respiratory status: Respiratory distress, Cyanosis Chest status: Nontender Breath sounds: Other - Decreased breath sounds bilaterally. Crackles bilaterally. Chest palpation: Normal - Cardiovascular Rhythm: Irregularly irregular, Tachycardia Heart sounds: Normal auscultation Murmur: No - Abdominal Inspection: Normal Distension: No distension Bowel sounds: Normal Tenderness: Nontender Organomegaly: No organomegaly - Back Back: Normal, Nontender - Extremities General upper extremity: Normal inspection, Nontender, Normal color, Normal ROM, Normal temperature General lower extremity: Normal inspection, Nontender, Edema, Normal color, Normal ROM, Normal temperature. No: Con's sign - Neurological Neuro grossly intact: No Lenora Coma Scale Eye Opening: None Lenora Coma Scale Verbal: None [place] Coma Scale Motor: None Lenora Coma Scale Total: 3 Speech: Normal - Skin Skin Temperature: Warm Skin Moisture: Dry Skin Color: Other - Chronic stasis changes bilateral lower extremities with 2+ pitting edema bilaterally. Course - Re-evaluation Re-evalutation: 09/20/18 15:05 Airways addressed immediately on arrival due to his hypoxia. A 7.5 endotracheal tube was placed with RSI underneath direct guidance with the glide scope. A oral gastric tube was placed. Significant amount of blood was suctioned out of the airway. Moderate amount of blood out of the OG tube. Multiple peripheral IVs were established. Attempts were made at central venous access of the right IJ as well as right femoral vein but unsuccessful due to expanding hematomas. Attempts at central lines were abandoned. Prior to the attempts at the central line patient went into ventricular tachycardic arrest. Pulses became faint. Heart rate went to 170-180. Patient was cardioverted at 200 J unsynchronized. Appeared to go into a A. fib with RVR pattern versus a more narrow complex tachycardia so synchronized cardioversion w as performed at 200 J. Patient then was able to go into a sinus tachycardia with heart rates in the 120s-130s. Diltiazem was given and heart rates began to come down. Fluids have been given. Antibiotics given. Amiodarone bolus and drip started as well. Patient is in guarded condition at this time. 09/20/18 15:48 We are going up on the Levophed at this time. I did consult with our general surgeon, Dr. Sandhu, about placing a catheter in the right lung to try and remove some fluid. He has come down and evaluated the patient but at this time feels like the best interest of the patient is to go ahead and proceed with transfer. He was able to adjust the vent settings and patient is oxygenating a little bit better at this time at around 88% with a little bit higher tidal volume and pressure support as well as PEEP. Blood pressure remains low at 75/61. The Levophed is at 12. Patient remains in critical condition. At this time however patient does remain stable enough for transfer. 09/20/18 15:51 Laboratory 09/20/18 09/20/18 09/20/18 12:11 12:11 12:11 WBC 12.1 H RBC 4.83 Hgb 13.4 L Hct 40.9 MCV 85 MCH 27.8 MCHC 32.8 RDW 18.8 H Plt Count 140 L Total Counted 100 Seg Neutrophils % Not Reportable Seg Neuts % (Manual) 77 Band Neutrophils % 1 L Lymphocytes % Not Reportable Lymphocytes % (Manual) 21 Monocytes % Not Reportable Monocytes % (Manual) 0 L Eosinophils % Not Reportable Eosinophils % (Manual) 0 Basophils % Not Reportable Basophils % (Manual) 1 Absolute Neutrophils Not Reportable Abs Neuts (Manual) 9.4 H Absolute Lymphocytes Not Reportable Abs Lymphs (Manual) 2.5 Absolute Monocytes Not Reportable Abs Monocytes (Manual) 0.0 L Absolute Eosinophils Not Reportable Absolute Eos (Manual) 0.0 Absolute Basophils Not Reportable Abs Basophils (Manual) 0.1 Clumped Platelets PRESENT Platelet Comment DECREASED Poikilocytosis 1+ Anisocytosis 2+ Ovalocytes 1+ PT INR APTT Carbonic Acid HCO3/H2CO3 Ratio ABG pH ABG pCO2 ABG pO2 ABG HCO3 ABG Total CO2 ABG O2 Saturation ABG Base Excess FiO2 Sodium 143.0 Potassium 4.2 Chloride 103 Carbon Dioxide 28 Anion Gap 12 BUN 25 H Creatinine 1.11 Est GFR ( Amer) > 60 Est GFR (Non-Af Amer) > 60 Glucose 211 H Lactic Acid Calcium 9.4 Total Bilirubin 2.3 H Direct Bilirubin 1.6 H Neonat Total Bilirubin Not Reportable Neonat Direct Bilirubin Not Reportable Neonat Indirect Bili Not Reportable AST 39 ALT 18 L Alkaline Phosphatase 203 H Creatine Kinase 34 L CK-MB (CK-2) 0.28 Troponin I 0.105 NT-Pro-B Natriuret Pep Total Protein 7.5 Albumin 4.3 Urine Color Urine Appearance Urine pH Ur Specific [place] Urine Protein Urine Glucose (UA) Urine Ketones Urine Blood Urine Nitrite Urine Bilirubin Urine Urobilinogen Ur Leukocyte Esterase Urine WBC (Auto) Urine RBC (Auto) Squamous Epi Cells Auto Urine Mucus (Auto) Urine Ascorbic Acid 09/20/18 09/20/18 09/20/18 12:11 12:11 12:11 WBC RBC Hgb Hct MCV MCH MCHC RDW Plt Count Total Counted Seg Neutrophils % Seg Neuts % (Manual) Band Neutrophils % Lymphocytes % Lymphocytes % (Manual) Monocytes % Monocytes % (Manual) Eosinophils % Eosinophils % (Manual) Basophils % Basophils % (Manual) Absolute Neutrophils Abs Neuts (Manual) Absolute Lymphocytes Abs Lymphs (Manual) Absolute Monocytes Abs Monocytes (Manual) Absolute Eosinophils Absolute Eos (Manual) Absolute Basophils Abs Basophils (Manual) Clumped Platelets Platelet Comment Poikilocytosis Anisocytosis Ovalocytes PT 22.8 H INR 1.91 APTT 43.9 H Carbonic Acid HCO3/H2CO3 Ratio ABG pH ABG pCO2 ABG pO2 ABG HCO3 ABG Total CO2 ABG O2 Saturation ABG Base Excess FiO2 Sodium Potassium Chloride Carbon Dioxide Anion Gap BUN Creatinine Est GFR ( Amer) Est GFR (Non-Af Amer) Glucose Lactic Acid 3.4 H Calcium Total Bilirubin Direct Bilirubin Neonat Total Bilirubin Neonat Direct Bilirubin Neonat Indirect Bili AST ALT Alkaline Phosphatase Creatine Kinase CK-MB (CK-2) Troponin I NT-Pro-B Natriuret Pep 3000 H Total Protein Albumin Urine Color Urine Appearance Urine pH Ur Specific [place] Urine Protein Urine Glucose (UA) Urine Ketones Urine Blood Urine Nitrite Urine Bilirubin Urine Urobilinogen Ur Leukocyte Esterase Urine WBC (Auto) Urine RBC (Auto) Squamous Epi Cells Auto Urine Mucus (Auto) Urine Ascorbic Acid 09/20/18 09/20/18 12:20 12:27 WBC RBC Hgb Hct MCV MCH MCHC RDW Plt Count Total Counted Seg Neutrophils % Seg Neuts % (Manual) Band Neutrophils % Lymphocytes % Lymphocytes % (Manual) Monocytes % Monocytes % (Manual) Eosinophils % Eosinophils % (Manual) Basophils % Basophils % (Manual) Absolute Neutrophils Abs Neuts (Manual) Absolute Lymphocytes Abs Lymphs (Manual) Absolute Monocytes Abs Monocytes (Manual) Absolute Eosinophils Absolute Eos (Manual) Absolute Basophils Abs Basophils (Manual) Clumped Platelets Platelet Comment Poikilocytosis Anisocytosis Ovalocytes PT INR APTT Carbonic Acid 1.55 H HCO3/H2CO3 Ratio 14:1 ABG pH 7.25 L ABG pCO2 51.4 H ABG pO2 118.3 H ABG HCO3 22.2 ABG Total CO2 23.8 ABG O2 Saturation 97.7 ABG Base Excess -5.4 FiO2 100% Sodium Potassium Chloride Carbon Dioxide Anion Gap BUN Creatinine Est GFR ( Amer) Est GFR (Non-Af Amer) Glucose Lactic Acid Calcium Total Bilirubin Direct Bilirubin Neonat Total Bilirubin Neonat Direct Bilirubin Neonat Indirect Bili AST ALT Alkaline Phosphatase Creatine Kinase CK-MB (CK-2) Troponin I NT-Pro-B Natriuret Pep Total Protein Albumin Urine Color [place] Urine Appearance SLIGHTLY-CLOUDY Urine pH 5.0 Ur Specific [place] 1.023 Urine Protein 100 H Urine Glucose (UA) >=500 H Urine Ketones TRACE H Urine Blood NEGATIVE Urine Nitrite NEGATIVE Urine Bilirubin NEGATIVE Urine Urobilinogen 2.0 H Ur Leukocyte Esterase NEGATIVE Urine WBC (Auto) 2 Urine RBC (Auto) 2 Squamous Epi Cells Auto <1 Urine Mucus (Auto) RARE Urine Ascorbic Acid NEGATIVE Chest X-Ray 09/20/18 12:28 IMPRESSION: 1. LIFE LINES APPEAR TO BE IN APPROPRIATE POSITION. 2. CARDIOMEGALY WITH VASCULAR CONGESTION. RIGHT PLEURAL EFFUSION. PERIHILAR INFILTRATES LIKELY DUE TO PULMONARY EDEMA ALTHOUGH PNEUMONIA CANNOT BE EXCLUDED. Head CT 09/20/18 12:29 IMPRESSION: MILD CHRONIC CHANGES OF ATROPHY AND MICROVASCULAR ISCHEMIA. NO ACUTE PROCESS. EVIDENCE OF ACUTE STROKE: NO. Chest/Abdomen CTA 09/20/18 13:40 IMPRESSION: 1. NORMAL CTA OF THE CHEST. NO PULMONARY EMBOLI. 2. LARGE BILATERAL PLEURAL EFFUSIONS, PROBABLY DUE TO CONGESTIVE HEART FAILURE. CONSOLIDATIONS IN THE LOWER LOBES AND PATCHY PERIHILAR AIRSPACE DISEASE PROBABLY DUE TO COMPRESSIVE ATELECTASIS AND PULMONARY EDEMA. PNEUMONIA CANNOT BE EXCLUDED. - Vital Signs Vital signs: Temp Pulse Resp BP Pulse Ox 17 71/55 L 86 L 09/20/18 15:26 09/20/18 15:26 09/20/18 15:26 - Laboratory Result Diagrams: 09/20/18 12:11 09/20/18 12:11 Laboratory results interpreted by me: 09/20/18 09/20/18 09/20/18 12:11 12:11 12:11 WBC 12.1 H Hgb 13.4 L RDW 18.8 H Plt Count 140 L Band Neutrophils % 1 L Monocytes % (Manual) 0 L Abs Neuts (Manual) 9.4 H Abs Monocytes (Manual) 0.0 L PT 22.8 H APTT 43.9 H Carbonic Acid ABG pH ABG pCO2 ABG pO2 BUN 25 H Glucose 211 H Lactic Acid Total Bilirubin 2.3 H Direct Bilirubin 1.6 H ALT 18 L Alkaline Phosphatase 203 H Creatine Kinase 34 L NT-Pro-B Natriuret Pep Urine Protein Urine Glucose (UA) Urine Ketones Urine Urobilinogen 09/20/18 09/20/18 09/20/18 12:11 12:11 12:20 WBC Hgb RDW Plt Count Band Neutrophils % Monocytes % (Manual) Abs Neuts (Manual) Abs Monocytes (Manual) PT APTT Carbonic Acid 1.55 H ABG pH 7.25 L ABG pCO2 51.4 H ABG pO2 118.3 H BUN Glucose Lactic Acid 3.4 H Total Bilirubin Direct Bilirubin ALT Alkaline Phosphatase Creatine Kinase NT-Pro-B Natriuret Pep 3000 H Urine Protein Urine Glucose (UA) Urine Ketones Urine Urobilinogen 09/20/18 12:27 WBC Hgb RDW Plt Count Band Neutrophils % Monocytes % (Manual) Abs Neuts (Manual) Abs Monocytes (Manual) PT APTT Carbonic Acid ABG pH ABG pCO2 ABG pO2 BUN Glucose Lactic Acid Total Bilirubin Direct Bilirubin ALT Alkaline Phosphatase Creatine Kinase NT-Pro-B Natriuret Pep Urine Protein 100 H Urine Glucose (UA) >=500 H Urine Ketones TRACE H Urine Urobilinogen 2.0 H - EKG Interpretation by Me EKG shows normal: abnormal: QRS Complexes - Wide-complex tachycardia, ST-T Waves Rate: Tachycardia Procedures - Central Line Right Internal jugular Central line pre-insertion: Sterile PPE donned, Betadine prep applied, Chloraprep applied, Sterile drapes applied Central line lumen type: Triple Ultrasound guided: Yes Line secured with sutures: No Complications: Yes Notes: 09/20/18 15:08 Unable to proceed due to expanding hematoma. Direct pressure was applied. Ultrasound was then visualized. No significant hematoma or bleeding was subsequently seen after holding pressure for 15 minutes. The sterile field was moved distally to the right femoral vein area. Underneath ultrasound guidance the right femoral vein was isolated. The introducer needle was directed to the right femoral vein. A wire was able to be threaded. A repeat check was performed with the ultrasound before dilating and it appeared that the another hematoma was forming. The wire was removed and sterile dressings were applied with direct pressure for 15 minutes. The procedure was abandoned. - Additional Procedures Cardioversion/Defib Additional Procedures: Cardioversion/defib - Patient went into V. tach. Unsynchronized cardioversion at 200 J x1. Synchronized cardioversion at 200 J x1. Procedure was successful. Critical Care Note - Critical Care Note Total time excluding time spent on procedures (mins): 120 Comments: Tachycardia, hypotension, consultation with specialist, coordination of care. Discharge - Discharge Clinical Impression: Acute respiratory failure with hypoxia Sepsis Qualifiers: Sepsis type: sepsis due to unspecified organism Qualified Code(s): A41.9 - Sepsis, unspecified organism Condition: Critical Referrals: COLTEN BARBA MD [Primary Care Provider] - Follow up as needed
[2018-09-20] MEDS ORDERED: NOREPINEPHRINE BITARTRATE INJ/PF 4 MG/4 ML SDV IV ONE ×2 (15:11→17:37)
[2018-09-20] MEDS ORDERED: DEXTROSE 5%-WATER 250 ML with NOREPINEPHRINE BITARTRATE 4 MG IV PRN ×2 (15:17)
[2018-09-20 17:26] VITALS: BP 88/63
--- NOTE | 2018-09-20 19:22 | EKG REPORT ---
SEVERITY:- ABNORMAL ECG - EXTREME TACHYCARDIA WITH WIDE COMPLEX, PROBALE ATRIAL FIBRILLATION WITH RBBB : Confirmed by: Ange Jacques MD 20-Sep-2018 19:21:26
== END 2018-09-20 17:51 | disposition short-term general hospital (02) ==
LOC: ER 12:04
DX: J96.01 Acute respiratory failure with hypoxia (principal); A41.9 Sepsis, unspecified organism; I95.9 Hypotension, unspecified; R00.0 Tachycardia, unspecified; I48.91 Unspecified atrial fibrillation; E78.00 Pure hypercholesterolemia, unspecified; I11.0 Hypertensive heart disease with heart failure; E11.9 Type 2 diabetes mellitus without complications; I50.9 Heart failure, unspecified
CPT/HCPCS: 31500; 36556; 93005; 96376; 36600; 99291; 99292; 96361; 51702; 96375; 96365; 36415; 87040; 87086; 82553; 82962; 82803; 82550; 85025; 85610; 85730; 87077; 80053; 81001; 84484; 83605; 83880; 71045; 70450; 71275; 94660; 93010; C1751; J3490 ×4; J2704; J7060; J7030; J0282; J2185

== ENCOUNTER → 2019-04-15 | Outpatient (CLI) | payer MEDICARE, OTHER ==
[2019-04-15 13:11] LABS: ANION GAP 14 (5-19); BLOOD UREA NITROGEN 37 mg/dL (7-20); CALCIUM 9.8 mg/dL (8.4-10.2); CARBON DIOXIDE 35 mmol/L (22-30); CHLORIDE 92 mmol/L (98-107); GLUCOSE 175 mg/dL (75-110); POTASSIUM 3.1 mmol/L (3.6-5.0)
== END ==
LOC: OD 12:04
PROVIDERS: ATTEND Internal Medicine
DX: I11.0 Hypertensive heart disease with heart failure (principal); I50.9 Heart failure, unspecified; I48.0 Paroxysmal atrial fibrillation
CPT/HCPCS: 36415; 80048

== ENCOUNTER 2020-01-12 07:36 | Day surgery (SDC) | payer MEDICARE, OTHER ==
--- NOTE | 2020-01-08 13:04 | EKG REPORT ---
SEVERITY:- ABNORMAL ECG - PROBABALE ATRIAL FIBRILLATION PAIRED VENTRICULAR PREMATURE COMPLEXES NONSPECIFIC INTRAVENTRICULAR CONDUCTION DELAY : Confirmed by: Marlon Robertson MD 08-Jan-2020 13:03:59
[~2020-01-12 07:36] MED LIST changes: -ETOMIDATE INJ/PF 20 MG/10 ML SDV IV ONE; +PROPOFOL INJ 200 MG/20 ML VIAL IV ONE
--- NOTE | 2020-01-12 08:50 | Operative Report ---
Operative Report DATE OF SURGERY: 01/12/20 Operative Report: The risk, benefits and alternatives of the procedure including the risk of bleeding, perforation requiring surgery have been explained to the patient in detail and informed consent has been obtained. Patient is taken to the endoscopy suite and placed in left, lateral decubital position. Timeout was called. Propofol medication is administered. Rectal examination is performed which did not reveal any masses, tears or fissures. An Olympus videoscope was introduced into the patient's rectum. Scope was then advanced to the cecum. Appears to be a little bit of a redundancy on the splenic flexure side of the colon. The cecum is ultimately identified by the ileocecal valve as well as the appendiceal office. Photodocumentation is obtained. The scope was then sequentially pulled back via the various segments of the colon including the ascending colon, hepatic flexure, transverse colon, splenic flexure, descending colon and finally into the rectosigmoid portions of the colon. Retroflexion maneuver is performed. PREOPERATIVE DIAGNOSIS: Colorectal cancer screening POSTOPERATIVE DIAGNOSIS: Right side colon Inflammation status post biopsy. Diverticulosis without any evidence of diverticulitis. internal hemorrhoids OPERATION: Colonoscopy with biopsy SURGEON: ADÁN LYNNE ANESTHESIA: LMAC TISSUE REMOVED OR ALTERED: As noted above. COMPLICATIONS: None. ESTIMATED BLOOD LOSS: None. INTRAOPERATIVE FINDINGS: As noted above. PROCEDURE: Patient tolerated the procedure well. No immediate postprocedure complications are noted. Patient is discharged in good condition. Discharge date 01/12/2020. Discharge diet: Regular. Discharge activity: Regular. 2 to 3-week follow-up to discuss findings. Patient is instructed to call the office or proceed to the emergency room should there be any further problems or questions. Wait on the pathology. If -10-year surveillance colonoscopy if no family history of colorectal cancer.
[2020-01-12 09:25] VITALS: BP 122/56
== END 2020-01-12 09:30 | disposition home or self-care (01) ==
LOC: END 07:36
PROVIDERS: ATTEND Internal Medicine Gastroenterology
DX: Z12.11 Encounter for screening for malignant neoplasm of colon (principal); K52.9 Noninfective gastroenteritis and colitis, unspecified; K57.30 Diverticulosis of large intestine without perforation or abscess without bleeding; K64.8 Other hemorrhoids; Z03.818 Encounter for observation for suspected exposure to other biological agents ruled out; J44.9 Chronic obstructive pulmonary disease, unspecified; I25.2 Old myocardial infarction; E11.9 Type 2 diabetes mellitus without complications; Z85.820 Personal history of malignant melanoma of skin; Z95.0 Presence of cardiac pacemaker; Z87.891 Personal history of nicotine dependence; Z79.899 Other long term (current) drug therapy; Z79.84 Long term (current) use of oral hypoglycemic drugs
CPT/HCPCS: 45380; 93005; 88305 ×2; 93010; U0003; J2704; C9803; 87635